=== PATIENT | female | born 1950 | race Caucasian/White ===

== ENCOUNTER 2016-08-25 10:11 | Outpatient (CLI) | payer MEDICAID | END 2016-08-25 10:12 | disposition home or self-care (01) | DX: Z12.31 Encounter for screening mammogram for malignant neoplasm of breast (principal) ==

== ENCOUNTER 2016-10-08 07:57 | Outpatient (CLI) | payer MEDICAID ==
--- NOTE | 2016-10-08 11:46 | MRI Report ---
MRI BRAIN WITHOUT CONTRAST INDICATION: 66-year-old female with atypical headache. Please assess. TECHNIQUE: 1. T1 sagittal and fat-saturated T2 coronal. 2. Axial T1, FLAIR, T2, T2 * and DWI. COMPARISON: Head CT 01/15/2013. FINDINGS: Ventricular size is normal. Noted are cavum septum pellucidum et vergae, normal anatomical variants. An old lacunar infarction is identified in the right caudate nucleus. In addition, old lacunar-type i nfarctions are seen in the ferguson radiata bilaterally. There is a mild to moderate amount of white ma tter disease in the supratentorial brain, manifested as focal and confluent T2 hyperdensities that ar e scattered throughout the periventricular, deep and subcortical white matter bilaterally. A frontopa rietal distribution predominates. Signal intensity of cortex and white matter is otherwise unremarkab le. Flow voids are demonstrated in the main intracranial arteries. A roughly 3 x 2 mm focus of B1000 hyperintensity is identified in deep white matter left parietal lob e (see image 136 of series 505). There is corresponding ADC map hypointensity, suggesting that this r elates to recent (i.e. one week old or less) infarction. There is a second, similar-sized focus B1000 hyperintensity in cortex of left parietal lobe, more posteriorly and slightly more craniad (see imag e 144 of series 505). It is difficult to confirm definite ADC map hypointensity associated with this second lesion suggesting that it may relate to older, more subacute infarction. No other focal abnorm ality is demonstrated on diffusion-weighted imaging. A small focus of magnetic susceptibility artifac t is identified in the subcortical white matter of right temporal lobe (see image 12 of series 601). In addition, a few small rounded foci of magnetic susceptibility artifact are identified in the upper frontal lobes bilaterally (see images 17 through 20 of series 801). A few are demonstrated, laterall y in anterior right temporal lobe. There appears to be a tiny focus of magnetic susceptibility artifa ct in upper left thalamus. These foci of magnetic susceptibility artifact likely represent hemosideri n from previous microhemorrhages. No other potential acute or chronic hemorrhage is identified on the T2* GRE sequence. No abnormal extra-axial fluid collection. No mass effect or midline shift. There is bilateral exophthalmos of uncertain etiology. No evidence of intraorbital mass lesion. There is minor mucosal thickening and a few ethmoid air cells. The paranasal sinuses are otherwise cl ear. No significant mastoid or middle ear effusion is demonstrated. IMPRESSION: 1. Age appropriate senescent change. 2. Old lacunar infarctions in the right caudate nucleus and bilateral ferguson radiata. 3. A mild to moderate amount of white matter disease is identified in the supratentorial brain, likel y representing chronic microangiopathy. 4. Tiny focus of diffusion restriction in deep white matter left parietal lobe, is consistent with re cent (7 days old or less) infarction. This could represent a small vessel-type infarction. However, a lso demonstrated is a small focus of B1000 hyperintensity in cortex of left parietal lobe that certai nly could relate to embolic-type infarction. This is in the left MCA territory. It probably relates t o older, more subacute infarction. 5. Several small, rounded foci of magnetic susceptibility artifact are identified in the supratentori al brain, likely representing hemosiderin from previous microhemorrhages. In a patient of this age, m ain differential diagnostic considerations for microhemorrhages are prior trauma, chronic hypertensio n and amyloid angiopathy. Amyloid angiopathy is more common in older individuals. 6. No other significant intracranial findings on this unenhanced brain MRI. In particular, no eviden ce of acute hemorrhage, space-occupying mass lesion or other potential cause for headaches. Referring Provider Line: [phone] SITE ID: [id number]
== END 2016-10-08 07:58 | disposition home or self-care (01) ==
LOC: DI 07:57
PROVIDERS: ATTEND Nurse Practitioner Family
DX: R90.82 White matter disease, unspecified (principal); Z86.73 Personal history of transient ischemic attack (TIA), and cerebral infarction without residual deficits
CPT/HCPCS: 70551

== ENCOUNTER 2016-11-04 14:20 | Outpatient (CLI) | payer MEDICAID ==
--- NOTE | 2016-11-05 07:52 | Ultrasound Report ---
CAROTID DUPLEX: 11/04/2016 CLINICAL INDICATION: Lacunar infarction. TECHNIQUE: Real-time sonographic vascular imaging was performed by the burr bench hand through the carotid arteries utilizing both color-flow and Doppler spectral analysis. Multiple inbound call center representative static images were saved for review. Vessel PSV cm/sec 2D Plaque Estimate % ICA/CCA PSV EDV cm/sec % Stenosis RCCA Prox 61 -- RCCA Dist 54 14 RECA 69 -- RT BULB 55 -- 1.02 18 ILDA Prox 52 -- 0.96 16 ILDA Mid 64 -- 1.19 17 ILDA Dist 76 -- 1.41 21 RVA 56 RVA flow direction: Antegrade. Vessel PSV cm/sec 2D Plaque Estimate % ICA/CCA PSV EDV cm/sec % Stenosis LCCA Prox 61 -- LCCA Dist 56 18 LECA 57 -- LFT BULB 66 -- 1.18 20 LICA Prox 48 -- 0.86 18 LICA Mid 98 -- 1.75 36 LICA Dist 69 -- 1.23 25 LVA 47 LVA flow direction: Antegrade. Velocity criteria are extrapolated from diameter data as defined by the Society of Radiologists in Ultrasound Consensus Conference Radiology 2003; 229; 340-346. Degree of Stenosis % ICA PSV cm/sec Plaque Estimate % ICA/CCA RSV Ratio ICA EDV cm/sec Normal < 125 None < 2.0 < 40 <50 < 125 < 50 < 2.0 < 40 50-69 125 - 130 >/= 50 2.0 - 4.0 40 - 100 >/= 70 but less than near occlusion > 230 >/= 50 > 4.0 > 100 Near occlusion High, low, or undetectable Visible lumen Variable Variable Total occlusion Undetectable No detectable lumen Not applicable Not applicable FINDINGS: RIGHT: There is mild plaquing in the right carotid bifurcation, without evidence of a focal hemodynamically significant carotid stenosis. LEFT: There is mild plaquing in the left carotid bifurcation, without evidence of a focal hemodynamically significant carotid stenosis. The vertebral arteries demonstrate antegrade flow bilaterally. IMPRESSION: MILD PLAQUING BILATERALLY, WITHOUT EVIDENCE OF A FOCAL HEMODYNAMICALLY SIGNIFICANT CAROTID STENOSIS. MTDD
== END 2016-11-04 14:21 | disposition home or self-care (01) ==
LOC: DI 14:20
PROVIDERS: ATTEND Family Medicine
DX: I63.50 Cerebral infarction due to unspecified occlusion or stenosis of unspecified cerebral artery (principal)
CPT/HCPCS: 93880

== ENCOUNTER → 2017-04-08 | Outpatient (CLI) | payer SELFPAY ==
[2017-04-08 18:41] LABS: CALCIUM 9.5 mg/dL (8.5-10.3); POTASSIUM 4.4 mmol/L (3.5-5.0)
== END ==
LOC: LAB.F 08:00
PROVIDERS: ATTEND Family Medicine
DX: I10 Essential (primary) hypertension (principal)
CPT/HCPCS: 36415; 80048

== ENCOUNTER 2018-03-19 14:43 | Emergency (ER) | payer MEDICARE ==
[2018-03-19 14:59] VITALS: BP 169/82
--- NOTE | 2018-03-19 16:22 | ED Physician Documentation ---
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: section, Tubal ligation, Hysterectomy - Present Medications Home Medications: Ambulatory Orders Medication Instructions Recorded Confirmed Albuterol [Proventil Hfa] 1 puffs INH Q4-6H 01/15/13 05/17/14 Atenolol 50 mg PO 01/15/13 05/17/14 Albuterol Sulfate 2.5 mg IH Q4HR PRN #25 unit 05/17/14 Albuterol [Ventolin Hfa] 2 puffs INH Q4H PRN #1 inhaler 05/17/14 Ciprofloxacin HCl/Dexameth 4 drops OT BID 7 Days #1 bottle 03/19/18 [Ciprodex Otic Suspension] - Allergies Allergies/Adverse Reactions: Allergies Allergy/AdvReac Type Severity Reaction Status Date / Time erythromycin base Allergy Severe Respiratory Verified 01/15/13 15:44 [Erythromycin Base] Penicillins Allergy Hives Verified 01/15/13 15:44 Tetracyclines Allergy Rash Verified 03/19/18 14:50 - Social History Does the pt smoke?: Yes Smoking Status: Current every day smoker Does the pt drink ETOH?: No Does the pt have substance abuse?: No - Immunizations Immunizations are current?: Yes - POLST Patient has POLST: No PD ED PE NORMAL - Vitals Vital signs reviewed: Yes - HEENT HEENT: Other (R ear mild canal TTP TM benign, L with erythematous scaling to outer ear, canal swollen red with bright green purulent dc and unable to see TM, mastoids s redness or swelling) - Cardiac Cardiac: RRR - Respiratory Respiratory: No respiratory distress, Clear bilaterally Results - Vitals Vitals: Vital Signs - 24 hr 03/19/18 14:45 Temperature 36 C L Heart Rate 69 Respiratory 18 Rate Blood Pressure 169/82 H O2 Saturation 98 Oxygen O2 Source Room air PD MEDICAL DECISION MAKING - ED course ED course: non diabetic no mastoiditis will tx with ciprodex ENT referal already in Departure - Departure Disposition: 01 Home, Self Care Clinical Impression: Otitis externa Qualifiers: Otitis externa type: unspecified type Chronicity: acute Laterality: left Qualified Code(s): H60.502 - Unspecified acute noninfective otitis externa, left ear Condition: Good Instructions: ED Otitis Externa Prescriptions: Ciprofloxacin HCl/Dexameth [Ciprodex Otic Suspension] 4 drops OT BID 7 Days #1 bottle
== END 2018-03-19 16:30 | disposition home or self-care (01) ==
LOC: ED 14:43
DX: H60.502 Unspecified acute noninfective otitis externa, left ear (principal); I10 Essential (primary) hypertension; J45.909 Unspecified asthma, uncomplicated; F17.200 Nicotine dependence, unspecified, uncomplicated; Z79.51 Long term (current) use of inhaled steroids
CPT/HCPCS: 87070; 87181; 87205; 99282; 99283

== ENCOUNTER 2018-03-31 14:49 | Emergency (ER) | payer MEDICARE ==
[2018-03-31 15:04] VITALS: BP 171/84
--- NOTE | 2018-03-31 16:17 | ED Physician Documentation ---
PD HPI HEENT - Stated complaint Stated Complaint: LT EAR PX - Chief complaint Chief Complaint: Heent - History obtained from History obtained from: Patient - History of Present Illness Location: Left ear Recently seen: Emergency Dept (2 weeks ago.) - Additional information Additional information: The patient is a 68-year-old female who complains of left earache. She was seen here 2 weeks ago with markedly swollen left ear canal and drainage, and was treated with Ciprodex for otitis externa. She reports that the swelling and redness has completely resolved, but she is concerned that there may still be some fluid drainage, and the Ciprodex medication was completed yesterday. She has an appointment scheduled with an ENT specialist in [place] 2 weeks from now. She is concerned about the possibility of her ear getting as bad as it was 2 weeks ago prior to treatment. Review of Systems Constitutional: denies: Fever Eyes: denies: Irritation Ears: reports: Ear pain (left ear) Nose: denies: Congestion Throat: denies: Sore throat Respiratory: reports: Cough (Chronic smoker's cough.). 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, Hysterectomy - Present Medications Home Medications: Ambulatory Orders Medication Instructions Recorded Confirmed Albuterol [Proventil Hfa] 1 puffs INH Q4-6H 01/15/13 05/17/14 Atenolol 50 mg PO 01/15/13 05/17/14 Albuterol Sulfate 2.5 mg IH Q4HR PRN #25 unit 05/17/14 Albuterol [Ventolin Hfa] 2 puffs INH Q4H PRN #1 inhaler 05/17/14 Metoprolol Tartrate 03/31/18 - Allergies Allergies/Adverse Reactions: Allergies Allergy/AdvReac Type Severity Reaction Status Date / Time erythromycin base Allergy Severe Respiratory Verified 03/31/18 15:04 [Erythromycin Base] Penicillins Allergy Hives Verified 03/31/18 15:04 Tetracyclines Allergy Rash Verified 03/31/18 15:04 - Social History Does the pt smoke?: Yes Smoking Status: Current every day smoker Does the pt drink ETOH?: No Does the pt have substance abuse?: No - Immunizations Immunizations are current?: Yes - POLST Patient has POLST: No PD ED PE NORMAL - Vitals Vital signs reviewed: Yes (initially hypertensive.) - General General: Alert and oriented X 3, Well developed/nourished, Other (Facial stigmata of chronic alcoholism.) - HEENT HEENT: Atraumatic, EOMI, Ears normal, Pharynx benign, Other (Examination of her ears reveals no evidence of otitis externa or otitis media currently.) - Neck Neck: Supple, no meningeal sign, No adenopathy - Cardiac Cardiac: RRR - Respiratory Respiratory: Clear bilaterally - Derm Derm: No rash - Neuro Neuro: Alert and oriented X 3, Normal speech Results - Vitals Vitals: Oxygen O2 Source Room air PD MEDICAL DECISION MAKING - ED course Complexity details: reviewed old records, considered differential, d/w patient ED course: A medical screening exam was performed on this patient who was concerned about the possibility of recurrent left otitis externa. Her examination does not reveal recurrent infection. I discussed with her lack of physical evidence of infection, provided reassurance, encouraged her to arrange follow-up with primary care, and discussed potentially worrisome signs or symptoms that should prompt reevaluation in the emergency department.. Departure - Departure Disposition: 01 Home, Self Care Clinical Impression: Encounter for medical screening examination, History of acute otitis externa Condition: Stable Instructions: ED Otitis Externa Comments: Your ear infection appears to have almost completely resolved at this time. I do not believe you need to be on more antibiotics currently. You should keep the appointment you have scheduled with the ENT specialist. Return to the emergency department if you develop increasing pain or swelling, or otherwise worsening symptoms. Discharge Date/Time: 03/31/18 16:32
== END 2018-03-31 16:32 | disposition home or self-care (01) ==
LOC: ED 14:49
DX: Z13.5 Encounter for screening for eye and ear disorders (principal); Z86.69 Personal history of other diseases of the nervous system and sense organs; I10 Essential (primary) hypertension; F17.200 Nicotine dependence, unspecified, uncomplicated
CPT/HCPCS: 99282

== ENCOUNTER 2018-06-27 12:18 | Outpatient (CLI) | payer MEDICARE ==
--- NOTE | 2018-06-27 15:48 | XRAY Report ---
Reason: EXTREME PAIN + ULCERATION 2ND DIGIT L FOOT Procedure Date: 06/27/2018 Accession Number: [id number] / [id number] Procedure: XR - Foot 2 View LT CPT Code: FULL RESULT: EXAM: LEFT FOOT RADIOGRAPHY EXAM DATE: 06/27/2018 12:35 PM. CLINICAL HISTORY: Extreme pain and ulceration second digit left foot. COMPARISON: Left toes radiography 07/24/2015. TECHNIQUE: 3 views. FINDINGS: Bones: There is a lytic area within the head of the second metatarsal with well-circumscribed sclerotic border, up to 0.9 cm, as well as a second adjacent region, 3 mm, with similar appearance. Both were seen in 2016. No other destructive changes are identified. No fractures or bone lesions. Joints: Normal. No subluxations. Soft Tissues: No soft tissue gas is detected. No soft tissue swelling. IMPRESSION: No new destructive changes. No fracture or dislocation. RADIA
== END 2018-06-27 12:19 | disposition home or self-care (01) ==
LOC: DI 12:18
PROVIDERS: ATTEND Podiatrist
DX: M79.672 Pain in left foot (principal)

== ENCOUNTER 2018-10-28 21:56 | Emergency (ER) | payer MEDICARE, MEDICAID ==
[2018-10-28] MEDS ORDERED: TETANUS/DIPHTHERIA/PERTUSSIS 0.5 ML SYRINGE IM ONE (22:11)
[2018-10-28] MEDS ORDERED: BUFFERED LIDOCAINE 10 ML SYRINGE SUBQ STA (22:11)
--- NOTE | 2018-10-28 22:13 | ED Physician Documentation ---
PD HPI UPPER EXT INJURY - Stated complaint Stated Complaint: ARM LAC/FALL - Chief complaint Chief Complaint: Laceration - History obtained from History obtained from: Patient - History of Present Illness Location: Right (68-year-old woman with unknown tetanus status slipped and fell and sustained a skin tear on the back of the left forearm at home just prior to arrival. 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: section, Tubal ligation, Hysterectomy - Present Medications Home Medications: Ambulatory Orders Medication Instructions Recorded Confirmed Albuterol [Proventil Hfa] 1 puffs INH Q4-6H 01/15/13 05/17/14 Atenolol 50 mg PO 01/15/13 05/17/14 Albuterol [Ventolin Hfa] 2 puffs INH Q4H PRN #1 inhaler 05/17/14 Metoprolol Tartrate 100 mg PO DAILY 03/31/18 - Allergies Allergies/Adverse Reactions: Allergies Allergy/AdvReac Type Severity Reaction Status Date / Time erythromycin base Allergy Severe Respiratory Verified 10/28/18 22:06 [Erythromycin Base] Penicillins Allergy Hives Verified 10/28/18 22:06 Tetracyclines Allergy Rash Verified 10/28/18 22:06 - Social History Does the pt smoke?: Yes Smoking Status: Current every day smoker Does the pt drink ETOH?: No Does the pt have substance abuse?: No - Immunizations Immunizations are current?: Yes - POLST Patient has POLST: No PD ED PE NORMAL - Vitals Vital signs reviewed: Yes - General General: Alert and oriented X 3, No acute distress - HEENT HEENT: PERRL, EOMI - Neck Neck: Supple, no meningeal sign, No bony TTP - Extremities Extremities: Other (She has a 2 cm but fairly deep skin tear mid left forearm posteriorly with intact range of motion in flexion and extension at the wrist and all the digits and normal neurovascular function in the hand.) - Neuro Neuro: Alert and oriented X 3, Normal speech Results - Vitals Vitals: Vital Signs - 24 hr 10/28/18 22:00 Temperature 36.1 C L Heart Rate 61 Respiratory 18 Rate Blood Pressure 150/90 H O2 Saturation 96 Oxygen O2 Source Room air Procedures - Laceration (location) L arm Length in cm: 3 Wound type: Linear, Superficial, Into subcut fat Neurovascular status: Sensory intact, Motor intact, Vascular intact Anesthesia: Lidocaine 1%, With bicarb Wound Preparation: Irrigated copiously NS Skin layer closure: Nylon, Size #-0 - enter number (4-0), Sutures - enter # (3 horizontal mattress) Other: Tetanus booster given Complexity: Simple Departure - Departure Disposition: 01 Home, Self Care Clinical Impression: Laceration Condition: Good Record reviewed to determine appropriate education?: Yes Health Concerns: forearm laceration Plan of Treatment: Suturing, tetanus updated Care Goals: wound healing Assessment: as above Instructions: ED Laceration All Comments: Come back for any signs of infection which would include: Redness, swelling, drainage, increased pain, or fevers. You can wash it soap and water. Keep it covered and moist with bacitracin ointment which is available over the counter; avoid neosporin. Follow-up with your physician in about 14 days for suture removal. Note that these are horizontal mattress sutures, not simple interrupted sutures and should be taken out by a professional. Your blood pressure was elevated today on check into the emergency department. This does not mean that you have hypertension, it is a common phenomenon to come to the emergency department and have elevated blood pressure. I recommend that you see your primary care physician within the week to have it rechecked when you are feeling better.
[2018-10-28 22:41] VITALS: BP 172/82
== END 2018-10-28 22:47 | disposition home or self-care (01) ==
LOC: ED 21:56
DX: S51.812A Laceration without foreign body of left forearm, initial encounter (principal); W01.0XXA Fall on same level from slipping, tripping and stumbling without subsequent striking against object, initial encounter; Y93.89 Activity, other specified; Y92.009 Unspecified place in unspecified non-institutional (private) residence as the place of occurrence of the external cause; Z23 Encounter for immunization; I10 Essential (primary) hypertension; F17.200 Nicotine dependence, unspecified, uncomplicated
CPT/HCPCS: 12002; 90471; 99282; 99283

== ENCOUNTER 2018-11-19 10:28 | Outpatient (CLI) | payer MEDICARE, MEDICAID ==
--- NOTE | 2018-11-20 10:26 | Ultrasound Report ---
Reason: FLANK PAIN,LEFT Procedure Date: 11/19/2018 Accession Number: [id number] / [id number] Procedure: US - Abdomen Complete CPT Code: FULL RESULT: EXAM: ABDOMEN ULTRASOUND EXAM DATE: 11/19/2018 12:03 PM. CLINICAL HISTORY: Flank pain, left. COMPARISON: None. TECHNIQUE: Real-time scanning was performed with static images obtained. FINDINGS: Liver: Diffuse increased echogenicity and mild diffuse coarsening is compatible with fatty infiltration. No mass demonstrated. Findings consistent with a benign 2.4 x 1.0 x 2.5 cm peripheral right lobe cyst. Normal liver size, 14 cm. Main portal vein flow: Hepatopetal. Gallbladder: Single mobile 1.4 cm stone demonstrated. No gallbladder wall thickening, gallbladder dilatation, adjacent fluid or sonographic James sign. Biliary System: Common bile duct measures 8 mm. Mild, bile duct dilatation. No intrahepatic ductal dilatation demonstrated. Pancreas: Visualized portion is unremarkable. Kidneys: Right: 9.2 cm longitudinally. Mildly prominent renal pelvis without caliectasis likely represents normal prominent extrarenal pelvis. 1.5 x 1.5 x 1.3 cm lobulated cystic focus is demonstrated. Based on the images provided, this is considered to be indeterminant. Some mild wall irregularity or septal thickening cannot definitely be excluded. No definite masses or stones. Left: 11.4 cm longitudinally. Mildly prominent renal pelvis without caliectasis likely represents normal prominent extrarenal pelvis. 1.4 x 2.1 x 1.3 cm cyst appears mildly irregular but is probably benign. However, portions of the wall are not optimally visualized/characterized on the images provided. No definite masses or stones. Spleen: 10 cm. Normal in size and echotexture. Aorta and Inferior Vena Cava: Unremarkable. Other: Bladder appears grossly unremarkable with a prevoid volume of 231 cc and postvoid volume of 23 cc. Bilateral ureteral jets are visualized. The technologist incidentally noted a mobile soft tissue mass at the "right costal arch, focal fat collection." It has not been measured by the technologist. Based on the limited images provided, it does appear isoechoic to subcutaneous fat and presumably represents an incidental lipoma but clinical correlation is recommended and need for further evaluation should be based on the clinical setting. IMPRESSION: 1. Pattern consistent with diffuse fatty infiltration of the liver. 2. Cholelithiasis without ultrasound evidence of acute cholecystitis. 3. Mild dilatation of the common bile duct, 8 mm. 4. 1.5 cm right and 2.1 cm left cystic lesions are likely benign but definitive criteria are not confirmed on the images provided. Further evaluation by dedicated renal CT imaging with and without contrast could be considered. 5. Benign hepatic cyst. 6. Probable incidental chest/abdominal wall lipoma, as above. RADIA
== END 2018-11-19 10:29 | disposition home or self-care (01) ==
LOC: DI 10:28
PROVIDERS: ATTEND Registered Nurse
DX: R10.9 Unspecified abdominal pain (principal); K76.0 Fatty (change of) liver, not elsewhere classified; K80.20 Calculus of gallbladder without cholecystitis without obstruction; K76.89 Other specified diseases of liver; Q61.02 Congenital multiple renal cysts
CPT/HCPCS: 76700

== ENCOUNTER 2019-01-03 09:45 | Outpatient (CLI) | payer MEDICARE, MEDICAID ==
[2019-01-03 10:02] LABS: EOSINOPHILS # (AUTO) 0.2 10^3/uL (0.0-0.7); EOSINOPHILS % (AUTO) 6.2 %; HGB - HEMOGLOBIN 13.6 g/dL (12.0-16.0); LYMPHOCYTES # (AUTO) 0.8 10^3/uL (1.5-3.5); LYMPHOCYTES % (AUTO) 21.2 %; MEAN CORPUSCULAR HEMOGLOBIN 33.7 pg (27.0-31.0); MEAN CORPUSCULAR VOLUME 96.5 fL (81.0-99.0); MEAN PLATELET VOLUME 9.4 fL (7.9-10.8); MONOCYTES # (AUTO) 0.4 10^3/uL (0.0-1.0); MONOCYTES % (AUTO) 11.4 %; NEUTROPHILS # (AUTO) 2.3 10^3/uL (1.5-6.6); NEUTROPHILS % (AUTO) 59.9 %; PLT - PLATELET COUNT 188 10^3/uL (130-450); RED BLOOD COUNT 4.03 10^6/uL (4.20-5.40); RED CELL DISTRIBUTION WIDTH 12.4 % (12.0-15.0); WHITE BLOOD COUNT 3.9 x10^3/uL (4.8-10.8)
[2019-01-03 10:26] LABS: HB2 TOTAL 13.5 g/dL; HEMOGLOBIN A1C 0.45 g/dL; HEMOGLOBIN A1C % 5.2 % (4.6-6.2)
[2019-01-03 10:28] LABS: ALBUMIN 4.1 g/dL (3.2-5.5); ALBUMIN/GLOBULIN RATIO 1.1 (1.0-2.2); ALKALINE PHOSPHATASE 51 IU/L (42-121); ALT ALANINE AMINOTRANSFERASE 18 IU/L (10-60); AST ASPARTATE AMINOTRANSFERASE 27 IU/L (10-42); BILIRUBIN,TOTAL 1.2 mg/dL (0.2-1.0); BUN - BLOOD UREA NITROGEN 20 mg/dL (6-20); CALCIUM 9.9 mg/dL (8.5-10.3); CARBON DIOXIDE - CO2 31 mmol/L (21-32); CHLORIDE 94 mmol/L (101-111); CHOL/HDL RATIO 2.4 (<4.4); CHOLESTEROL 214 mg/dL; CREATININE 0.9 mg/dL (0.4-1.0); GFR - MDRD 63 (>89); GLUCOSE 90 mg/dL (70-100); HDL CHOLESTEROL 88 mg/dL; LDL CHOLESTEROL,CALCULATED 117 mg/dL; LDL/HDL RATIO 1.3 (<4.4); SODIUM 133 mmol/L (135-145); TOTAL PROTEIN 7.8 g/dL (6.7-8.2); VLDL CHOLESTEROL 9 mg/dL
== END 2019-01-03 09:46 | disposition home or self-care (01) ==
LOC: LAB 09:45
PROVIDERS: ATTEND Registered Nurse
DX: I10 Essential (primary) hypertension (principal); Z72.0 Tobacco use; Z78.0 Asymptomatic menopausal state; E66.9 Obesity, unspecified
CPT/HCPCS: 36415; 80053; 80061; 83036; 83721; 84443; 85025

== ENCOUNTER 2019-01-05 11:14 | Outpatient (CLI) | payer MEDICARE, MEDICAID ==
[2019-01-05] MEDS ORDERED: IOVERSOL 320 100 ML VIAL IVP ONE (11:29)
--- NOTE | 2019-01-09 12:34 | CT Report ---
Reason: LT FLANK PAIN, RENAL PROTOCOL Procedure Date: 01/05/2019 Accession Number: [id number] / [id number] Procedure: CT - ABDOMEN W/WO CPT Code: FULL RESULT: EXAM: CT ABDOMEN WITHOUT AND WITH CONTRAST EXAM DATE: 01/05/2019 11:54 AM. HISTORY: LT FLANK PAIN, RENAL PROTOCOL. COMPARISON: None. TECHNIQUE: Routine helical CT imaging was performed through the abdomen before and after administration of IV contrast: 90 cc Optiray 320. Enteric contrast: No. Reconstruction: Coronal and sagittal. In accordance with CT protocol optimization, one or more of the following dose reduction techniques were utilized for this exam: automated exposure control, adjustment of mA and/or KV based on patient size, or use of iterative reconstructive technique. FINDINGS: Lung Bases: Unremarkable. Liver: 1.5 cm subcapsular segment 8 hypoattenuating study on the nephrographic phase (10/21) is not definitively seen on the noncontrast or corticomedullary phases, and is indeterminate. No other focal liver lesions are seen. Hepatic and portal veins appear patent. Gallbladder/Bile Ducts: Unremarkable. Spleen: Normal. Small accessory splenule seen adjacent to the spleen. Pancreas: Normal. No masses or ductal obstruction. Adrenal Glands: Normal. Kidneys: No renal calculi are seen. No hydronephrosis bilaterally. The visualized upper ureters appear unremarkable bilaterally. No renal masses are evident. Partial right lower nephrectomy is seen with mild right lower renal scarring and adjacent surgical clips. No evidence for new nodularity at the resection site to suspect recurrence. Peritoneal Cavity/Bowel: Unremarkable stomach. Normal caliber bowel loops without obstruction. No enlarged intraperitoneal or retroperitoneal lymph nodes are seen. No intra-abdominal fluid collections or masses evident. Vasculature: Atherosclerotic calcifications. No aneurysms. Bones: Osteopenia. Degenerative changes throughout the visualized spine. Other: None. IMPRESSION: 1. No renal calculi nor hydronephrosis bilaterally. No perinephric fat stranding. No findings to explain flank pain. 2. Unremarkable appearance of partial nephrectomy at the right lower pole with adjacent surgical clips, without evidence for local recurrence. 3. No new renal masses seen bilaterally. 4. Hypoattenuating subcapsular hepatic segment 8 lesion seen on the nephrographic phase is indeterminate. Liver MRI should be considered for further evaluation. RADIA
== END 2019-01-05 11:15 | disposition home or self-care (01) ==
LOC: DI 11:14
PROVIDERS: ATTEND Registered Nurse
DX: K76.9 Liver disease, unspecified (principal); R10.9 Unspecified abdominal pain; Z90.5 Acquired absence of kidney
CPT/HCPCS: 74170; Q9967

== ENCOUNTER 2019-01-30 09:34 | Outpatient (CLI) | payer MEDICARE, MEDICAID ==
[2019-01-30] MEDS ORDERED: GADOBUTROL 10 MMOL/10 ML VIAL ONE (10:21)
[2019-01-30] MEDS ORDERED: GADOBUTROL 10 MMOL/10 ML VIAL IVP ONE (11:26)
--- NOTE | 2019-01-30 14:37 | MRI Report ---
Reason: FLANK PAIN LEFT Procedure Date: 01/30/2019 Accession Number: [id number] / [id number] Procedure: MRI - Abdomen W/WO CPT Code: FULL RESULT: EXAM: MR ABDOMEN WITH AND WITHOUT CONTRAST (MR LIVER) EXAM DATE: 01/30/2019 11:15 AM. CLINICAL HISTORY: History of flank pain with CT study demonstrating segment 8 hepatic lesion. COMPARISON: ABDOMEN W/WO 01/05/2019 11:45 AM. TECHNIQUE: Multiplanar breath-hold T1, T2, and DWI sequences obtained through the abdomen on an MR scanner. Images obtained before and after administration of 7 mL Gadavist intravenous contrast. Multiphase postcontrast images obtained of the liver and abdomen. FINDINGS: Lung Bases: Unremarkable. Liver: The previously identified hypoenhancing solid segment 4A/segment 8 lesion along the anterior liver measures 1.5 x 1.4 cm and is T2 hyperintense, questionably contains microscopic fat on chemical phase shift imaging and demonstrates hypoenhancement compared to background parenchyma in all phases. Unfortunately, precontrast T1 sequences are motion degraded to the point where absence or presence of definitive enhancement are difficult to establish, based on previous CT the lesion is solid, and hypoenhancing compared to background liver. Gallbladder: The gallbladder is partially distended and appears normal with no wall thickening or stone. Bile ducts: No intrahepatic or extrahepatic duct dilatation Pancreas: The pancreas appears normal with no mass or ductal dilatation. Spleen: The spleen appears normal. Kidneys: The kidneys appear normal with no mass or hydronephrosis. Adrenals: The adrenals appear normal. Bowel: The visualized segments of the small bowel and colon appear normal with no inflammation or obstruction. Retroperitoneum: The retroperitoneal structures appear normal with no mass or lymphadenopathy. Other: None IMPRESSION: Indeterminate 1.5 cm dome of the liver lesion near segment 4/segment 8. The differential diagnosis includes metastatic disease which should be ruled out, biopsy could be considered. Unfortunately, T1 precontrast images are degraded to the point where the exclusion of focal fatty infiltration by virtue of T1 signal intensity is not confirmed, but this is felt to be less likely given appearance, dual echo signal and T2 hyperintense signal. RADIA
== END 2019-01-30 09:35 | disposition home or self-care (01) ==
LOC: DI 09:34
PROVIDERS: ATTEND Registered Nurse
DX: K76.9 Liver disease, unspecified (principal)
CPT/HCPCS: 74183; A9585

== ENCOUNTER 2019-02-22 14:28 | Outpatient (CLI) | payer MEDICARE, MEDICAID ==
[2019-02-22 14:57] LABS: BASOPHILS % (AUTO) 0.4 %; EOSINOPHILS # (AUTO) 0.2 10^3/uL (0.0-0.7); EOSINOPHILS % (AUTO) 3.8 %; HGB - HEMOGLOBIN 12.8 g/dL (12.0-16.0); LYMPHOCYTES # (AUTO) 1.2 10^3/uL (1.5-3.5); LYMPHOCYTES % (AUTO) 25.2 %; MEAN CORPUSCULAR HEMOGLOBIN 33.4 pg (27.0-31.0); MEAN CORPUSCULAR HGB CONC 35.1 g/dL (32.0-36.0); MEAN CORPUSCULAR VOLUME 95.3 fL (81.0-99.0); MONOCYTES # (AUTO) 0.4 10^3/uL (0.0-1.0); MONOCYTES % (AUTO) 9.2 %; NEUTROPHILS # (AUTO) 2.9 10^3/uL (1.5-6.6); NEUTROPHILS % (AUTO) 61.2 %; PLT - PLATELET COUNT 183 10^3/uL (130-450); RED BLOOD COUNT 3.83 10^6/uL (4.20-5.40); RED CELL DISTRIBUTION WIDTH 11.9 % (12.0-15.0); WHITE BLOOD COUNT 4.7 x10^3/uL (4.8-10.8)
[2019-02-22 15:04] LABS: PT - PROTHROMBIN TIME 11.3 secs (9.9-12.6)
[2019-02-22 15:06] LABS: ALBUMIN 4.2 g/dL (3.2-5.5); BILIRUBIN,DIRECT 0.1 mg/dL (0.1-0.5); BILIRUBIN,TOTAL 0.8 mg/dL (0.2-1.0); TOTAL PROTEIN 7.3 g/dL (6.7-8.2)
[2019-02-22 15:11] LABS: PARTIAL THROMBOPLASTIN TIME 26.6 secs (24.9-33.3)
[2019-02-23 11:11] LABS: HEPATITIS C ANTIBODY NON-REACTIVE (NON-REACTIVE)
== END 2019-02-22 14:29 | disposition home or self-care (01) ==
LOC: LAB 14:28
PROVIDERS: ATTEND Family Medicine
DX: K76.9 Liver disease, unspecified (principal); D64.9 Anemia, unspecified
CPT/HCPCS: 36415; 80076; 85025; 85610; 85730; 86803

== ENCOUNTER 2019-03-12 16:22 | Emergency (ER) | payer OTHER, MEDICARE, MEDICAID ==
--- NOTE | 2019-03-12 17:30 | XRAY Report ---
Reason: right pinky injury Procedure Date: 03/12/2019 Accession Number: [id number] / [id number] Procedure: XR - Hand 3 View RT CPT Code: Final Report FULL RESULT: EXAM: RIGHT HAND RADIOGRAPHY EXAM DATE: 03/12/2019 04:54 PM. CLINICAL HISTORY: Right 5th finger injury. COMPARISON: None. TECHNIQUE: 4 views. FINDINGS: Flexion positioning limits evaluation of the fingers on several views. Bones: No acute fracture. No suspicious osseous lesion. 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 No dislocation. Other: None. IMPRESSION: No acute osseous abnormality. RADIA
--- NOTE | 2019-03-12 17:54 | ED Physician Documentation ---
History of Present Illness - Stated complaint Stated Complaint: RT HAND INJURY - Chief complaint Chief Complaint: Ext Problem - Additonal information Additional information: This is a 68-year-old female who presents with right ring finger pain. Patient hyperextended the finger after tripping at work yesterday and she said it bent back past 90 degrees. She had a quite a bit of pain this morning, which is decreased somewhat throughout the day. She also hit the left side of her face, but has minimal to no pain and did not lose consciousness. No LOC. She is taking naproxen. She denies any weakness or numbness over the finger, she is able to flex and extend it. 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: section, Tubal ligation, Hysterectomy - Present Medications Home Medications: Ambulatory Orders Medication Instructions Recorded Confirmed Albuterol [Proventil Hfa] 1 puffs INH Q4-6H 01/15/13 05/17/14 Atenolol 50 mg PO 01/15/13 05/17/14 Albuterol [Ventolin Hfa] 2 puffs INH Q4H PRN #1 inhaler 05/17/14 Metoprolol Tartrate 100 mg PO DAILY 03/31/18 - Allergies Allergies/Adverse Reactions: Allergies Allergy/AdvReac Type Severity Reaction Status Date / Time erythromycin base Allergy Severe Respiratory Verified 10/28/18 22:06 [Erythromycin Base] Penicillins Allergy Hives Verified 10/28/18 22:06 Tetracyclines Allergy Rash Verified 03/12/19 16:35 - Social History Does the pt smoke?: Yes Smoking Status: Current every day smoker Does the pt drink ETOH?: No Does the pt have substance abuse?: No - Immunizations Immunizations are current?: Yes - POLST Patient has POLST: No PD ED PE NORMAL - General General: Alert and oriented X 3 - HEENT HEENT: Atraumatic, Other (Very mild superficial small abrasion to left face. No deformity.) - Neck Neck: Supple, no meningeal sign - Respiratory Respiratory: No respiratory distress - Extremities Extremities: Other (Mild edema over the fourth MCP joint, mild tenderness to palpation in this region. Patient has good flexion extension MCP, PIP and DIP in the fourth finger, no tenderness of the scaphoid or metacarpals. Sensation is intact light touch over the distal fingers, and capillary refill is brisk.) - Neuro Neuro: Alert and oriented X 3 Results - Vitals Vitals: Vital Signs - 24 hr 03/12/19 03/12/19 16:33 18:11 Temperature 37 C Heart Rate 67 63 Respiratory 20 16 Rate Blood Pressure 151/76 H 169/67 H O2 Saturation 97 95 Oxygen O2 Source Room air - Rads (name of study) XR R hand 3 view Radiology: Other (Polyarticular osteoarthritis without acute osseous abnormality or dislocation) PD MEDICAL DECISION MAKING - ED course ED course: Pt presents with pain after a hyperextension injury. XR is negative and finger is neurovascularly intact. I discussed supportive care for what appears to be a sprain, as well as PCP follow up. I also discussed follow up in 1 week with any worsening for repeat film. She does not have signs of any significant head injury and does not need CT head today. Return precautions discussed and patient was discharged home. Departure - Departure Disposition: 01 Home, Self Care Clinical Impression: Finger sprain Qualifiers: Encounter type: initial encounter Finger: ring finger Sprain of finger site: metacarpophalangeal joint Laterality: right Qualified Code(s): S63.654A - Sprain of metacarpophalangeal joint of right ring finger, initial encounter Condition: Good Instructions: ED Sprain Finger Follow-Up: Digna Oconnor MD [Primary Care Provider] - Within 1 week (For repeat exam and XR if pain is not improving) Comments: You were seen today for pain in your right ring finger after hyperextension injury. We do not see signs of a fracture today, please rest ice and elevate the area of pain, you may take naproxen and Tylenol for discomfort. If you are still having pain is not improved in 1 week, follow-up with your primary care provider to get a repeat x-ray and exam, as occasionally x-rays do not show small fractures in the first couple days. Forms: Activity restrictions Discharge Date/Time: 03/12/19 18:28
[2019-03-12 18:12] VITALS: BP 169/67
== END 2019-03-12 18:28 | disposition home or self-care (01) ==
LOC: ED 16:22
DX: S63.654A Sprain of metacarpophalangeal joint of right ring finger, initial encounter (principal); W01.0XXA Fall on same level from slipping, tripping and stumbling without subsequent striking against object, initial encounter; X50.1XXA Overexertion from prolonged static or awkward postures, initial encounter; Y99.0 Civilian activity done for income or pay; I10 Essential (primary) hypertension; I73.00 Raynaud's syndrome without gangrene; F17.200 Nicotine dependence, unspecified, uncomplicated
CPT/HCPCS: 99282; 99283

== ENCOUNTER 2019-05-15 11:57 | Outpatient (CLI) | payer MEDICARE, MEDICAID ==
[2019-05-15 12:57] LABS: ALBUMIN 3.8 g/dL (3.2-5.5); ALBUMIN/GLOBULIN RATIO 1.1 (1.0-2.2); ALKALINE PHOSPHATASE 50 IU/L (42-121); ALT ALANINE AMINOTRANSFERASE 15 IU/L (10-60); AST ASPARTATE AMINOTRANSFERASE 25 IU/L (10-42); BUN - BLOOD UREA NITROGEN 17 mg/dL (6-20); CALCIUM 9.4 mg/dL (8.5-10.3); CARBON DIOXIDE - CO2 31 mmol/L (21-32); CHLORIDE 96 mmol/L (101-111); CREATININE 0.9 mg/dL (0.4-1.0); GFR - MDRD 62 (>89); GLUCOSE 101 mg/dL (70-100); SODIUM 135 mmol/L (135-145); TOTAL PROTEIN 7.2 g/dL (6.7-8.2)
[2019-05-15 13:02] LABS: CRP - C-REACTIVE PROTEIN < 1.0 mg/dL (0-1.0)
[2019-05-15 13:22] LABS: RHEUMATOID FACTOR NEGATIVE (Negative)
[2019-05-17 12:15] LABS: ANA SCREEN NEGATIVE (NEGATIVE)
== END 2019-05-15 11:58 | disposition home or self-care (01) ==
LOC: LAB 11:57
PROVIDERS: ATTEND Family Medicine
DX: Z82.61 Family history of arthritis (principal); R51 Headache; M25.50 Pain in unspecified joint
CPT/HCPCS: 36415; 80053; 85651; 86038; 86140; 86200; 86430

== ENCOUNTER 2019-06-02 09:49 | Outpatient (CLI) | payer MEDICARE, MEDICAID ==
[2019-06-02] MEDS ORDERED: GADOBUTROL 7.5 MMOL/7.5 ML VIAL ONE (10:07)
[2019-06-02] MEDS ORDERED: GADOBUTROL 7.5 MMOL/7.5 ML VIAL IVP ONE (11:07)
--- NOTE | 2019-06-02 13:39 | MRI Report ---
Reason: HEADACHE ATYPICAL Procedure Date: 06/02/2019 Accession Number: [id number] / [id number] Procedure: MRI - Brain W/WO CPT Code: Final Report FULL RESULT: EXAM: MRI BRAIN WITHOUT AND WITH CONTRAST EXAM DATE: 06/02/2019 11:20 AM. CLINICAL HISTORY: 69-year-old female. HEADACHE ATYPICAL. COMPARISON: MR brain 10/08/2016 TECHNIQUE: Multiplanar, multisequence T1-weighted and fluid-sensitive MR sequences of the brain were performed before and after administration of intravenous contrast. Sequences optimized for routine evaluation. Other: None. IV Contrast: 6 ML Gadavist. FINDINGS: Brain Volume: Mild diffuse cerebral volume loss with ex vacuo dilatation of the ventricles and sulci, similar to prior study. Parenchyma: No acute hemorrhage, mass, or infarct. Extensive, semi-confluent T2/FLAIR hyperintense periventricular, deep, and subcortical white matter lesions within cerebral hemispheres bilaterally. No abnormal enhancement. Chronic lacunar infarcts right caudate nucleus and bilateral coronal radiata. Redemonstration scattered parenchymal foci of susceptibility artifact, likely representing chronic microhemorrhages. Ventricles/Cisterns: No hydrocephalus. No abnormal extra-axial fluid collection or hemorrhage. Orbits: Symmetric and unremarkable. Sella Turcica: The pituitary gland, cavernous sinuses, suprasellar cistern and optic chiasm are unremarkable. IAC: Symmetric and unremarkable. Vasculature: Normal signal flow void is seen in the major arterial structures at the skull base. The dural sinuses are patent and enhance normally. Sinuses: No acute sinus disease. Bones: No focal pathologic appearing marrow signal changes. Other: None. IMPRESSION: 1. No MRI evidence of acute intracranial abnormality. Specifically, no evidence of acute or subacute infarct, acute intracranial hemorrhage, mass, midline shift, or hydrocephalus. No abnormal intracranial enhancement. 2. Mild diffuse cerebral volume loss with ex vacuo dilatation of the ventricles and sulci, similar to prior study. 3. Extensive, semi-confluent T2/FLAIR hyperintense periventricular, deep, and subcortical white matter lesions within cerebral hemispheres bilaterally. 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 4. Chronic lacunar infarcts right caudate nucleus and bilateral coronal radiata. 5. Redemonstration scattered parenchymal foci of susceptibility artifact, likely representing chronic microhemorrhages. The primary differential considerations are hypertensive microbleeds, sequela of prior trauma, and amyloid angiopathy. RADIA
== END 2019-06-02 09:50 | disposition home or self-care (01) ==
LOC: DI 09:49
PROVIDERS: ATTEND Family Medicine
DX: R51 Headache (principal); I73.00 Raynaud's syndrome without gangrene; K76.9 Liver disease, unspecified
CPT/HCPCS: 70553; A9585

== ENCOUNTER 2019-08-19 14:23 | Emergency (ER) | payer MEDICARE, MEDICAID ==
--- NOTE | 2019-08-19 14:47 | ED Physician Documentation ---
History of Present Illness - Stated complaint Stated Complaint: LT LEG REDNESS,PX - Chief complaint Chief Complaint: Wound - History obtained from History obtained from: Patient - History of Present Illness Timing: How many days ago (2-3) Pain level max: 7 Pain level now: 5 Improved by: nothing Worsened by: nothing - Additonal information Additional information: LLE pain and swelling for a few days. worse today. Noted redness from the heel to medial aspect of the thigh. 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: section, Tubal ligation, Hysterectomy - Present Medications Home Medications: Ambulatory Orders Medication Instructions Recorded Confirmed Albuterol [Proventil Hfa] 1 puffs INH Q4-6H 01/15/13 05/17/14 Atenolol 50 mg PO 01/15/13 05/17/14 Albuterol [Ventolin Hfa] 2 puffs INH Q4H PRN #1 inhaler 05/17/14 Metoprolol Tartrate 100 mg PO DAILY 03/31/18 Cefdinir 300 mg PO BID #20 capsule 08/19/19 Oxycodone HCl 5 - 10 mg PO Q6H PRN #14 tablet 08/19/19 Rivaroxaban [Xarelto] 15 mg PO BID #42 tablet 08/19/19 - Allergies Allergies/Adverse Reactions: Allergies Allergy/AdvReac Type Severity Reaction Status Date / Time erythromycin base Allergy Severe Respiratory Verified 08/19/19 14:32 [Erythromycin Base] Penicillins Allergy Hives Verified 08/19/19 14:32 Tetracyclines Allergy Rash Verified 08/19/19 14:32 - Social History Does the pt smoke?: Yes Smoking Status: Current every day smoker Does the pt drink ETOH?: No Does the pt have substance abuse?: No - Immunizations Immunizations are current?: Yes - POLST Patient has POLST: No PD ED PE NORMAL - Vitals Vital signs reviewed: Yes - General General: Alert and oriented X 3, No acute distress - HEENT HEENT: Moist mucous membranes - Neck Neck: Supple, no meningeal sign - Cardiac Cardiac: RRR - Respiratory Respiratory: No respiratory distress, Clear bilaterally - Abdomen Abdomen: Soft, Non tender, Non distended - Derm Derm: Warm and dry - Extremities Extremities: Other (LLE swollen approx 2x the size of the RLE. Mild erythema. + calf tenderness. +medial thigh tenderness.) - Neuro Neuro: Alert and oriented X 3 - Psych Psych: Normal mood, Normal affect Results - Vitals Vitals: Vital Signs - 24 hr 08/19/19 08/19/19 14:27 16:30 Temperature 36.5 C Heart Rate 64 61 Respiratory 18 18 Rate Blood Pressure 196/92 H 173/76 H O2 Saturation 100 100 Oxygen O2 Source Room air - Labs Labs: Laboratory Tests 08/19/19 08/19/19 08/19/19 14:53 14:53 14:53 WBC 7.2 RBC 3.87 L Hgb 12.6 Hct 36.9 L MCV 95.3 MCH 32.6 H MCHC 34.1 RDW 12.2 Plt Count 151 MPV 10.2 Neut # (Auto) 5.4 Lymph # (Auto) 0.8 L [place] # (Auto) 0.8 Eos # (Auto) 0.1 Baso # (Auto) 0.0 Absolute Nucleated RBC 0.00 Nucleated RBC % 0.0 ESR 34 H Sodium 129 L Potassium 4.4 Chloride 92 L Carbon Dioxide 27 Anion Gap 10.0 BUN 18 Creatinine 1.1 H Estimated GFR (MDRD) 50 L Glucose 103 H Calcium 9.7 Total Bilirubin 1.0 AST 32 ALT 17 Alkaline Phosphatase 66 C-Reactive Protein 11.0 H Total Protein 7.9 Albumin 3.9 Globulin 4.0 Albumin/Globulin Ratio 1.0 Lipase 41 - Rads (name of study) Duplex ultrasound left lower extremity Radiology: Prelim report reviewed, EMP read contemporaneously, See rad report (1. Mid peroneal vein nonocclusive acute deep venous thrombosis versus chronic recanalized deep vein thrombus. Other deep veins are patent in the lower extremity. 2. Painful left groin lymph nodes. Probably reactive. ) PD MEDICAL DECISION MAKING - ED course Complexity details: reviewed results, re-evaluated patient, considered differential, d/w patient ED course: -year-old female presents to the emergency department, appears to have a mid peroneal vein nonocclusive DVT versus chronic recanalized DVT. Possible cellulitis as well. She has significantly swollen and her symptoms are consistent with an acute DVT. We will place her on antibiotics as well as Xarelto for home. Has not had any recent surgery. Discussed risks and benefits of anticoagulation. Does not have any bleeding disorders. No history of head injury or brain surgery. Patient will follow-up with her doctor for repeat ultrasound in a few weeks. Patient counseled regarding signs and symptoms for which I believe and urgent re-evaluation would be necessary. Patient with good understanding of and agreement to plan and is comfortable going home at this time This document was made in part using voice recognition software. While efforts are made to proofread this document, sound alike and grammatical errors may occur. Departure - Departure Disposition: Home, Self Care Clinical Impression: DVT (deep venous thrombosis) Qualifiers: DVT location: lower extremity Affected thrombotic vein of extremity: unspecified vein of extremity Chronicity: unspecified Laterality: left Qualified Code(s): I82.402 - Acute embolism and thrombosis of unspecified deep veins of left lower extremity Cellulitis Qualifiers: Site of cellulitis: extremity Site of cellulitis of extremity: lower extremity Laterality: left Qualified Code(s): L03.116 - Cellulitis of left lower limb Condition: Good Instructions: ED Infec Skin Cellulitis Follow-Up: MARCE ESPINO MD [Primary Care Provider] - Within 1 week Prescriptions: Cefdinir 300 mg PO BID #20 capsule Oxycodone HCl 5 - 10 mg PO Q6H PRN #14 tablet PRN Reason: pain Rivaroxaban [Xarelto] 15 mg PO BID #42 tablet Comments: Return if you worsen. Follow-up with your doctor for repeat evaluation in 3 to 4 days. Return for increasing pain, redness or swelling. Return especially for fevers. Return for any difficulty breathing. Follow-up with your doctor for further care. You will need a repeat ultrasound of your leg in approximately 3 to 4 weeks. After the initial prescription of Xarelto runs out in 21 days, you will need to be on Xarelto 20 mg daily as prescribed by your doctor. Do not drink alcohol or drive while on narcotic pain medicine. Note that many narcotic pain relievers also contain tylenol/acetaminophen. Please ensure that your total dose of acetaminophen from all sources does not exceed 3 grams (3000mg) per day. You may constipated on this medication, take a stool softener such as "Colace" twice a day while you are on it. Also recommend a [id number] laxative such as senna or MiraLAX any day that you do not have a bowel movement. If you received narcotic pain medication in the emergency department, do not drive or operate machinery for the next 24 hours. Discharge Date/Time: 08/19/19 17:30
[2019-08-19 15:00] LABS: BASOPHILS % (AUTO) 0.3 %; EOSINOPHILS # (AUTO) 0.1 10^3/uL (0.0-0.7); HGB - HEMOGLOBIN 12.6 g/dL (12.0-16.0); LYMPHOCYTES # (AUTO) 0.8 10^3/uL (1.5-3.5); LYMPHOCYTES % (AUTO) 11.6 %; MEAN CORPUSCULAR HEMOGLOBIN 32.6 pg (27.0-31.0); MEAN CORPUSCULAR HGB CONC 34.1 g/dL (32.0-36.0); MEAN CORPUSCULAR VOLUME 95.3 fL (81.0-99.0); MEAN PLATELET VOLUME 10.2 fL (7.9-10.8); MONOCYTES # (AUTO) 0.8 10^3/uL (0.0-1.0); MONOCYTES % (AUTO) 11.2 %; NEUTROPHILS # (AUTO) 5.4 10^3/uL (1.5-6.6); NEUTROPHILS % (AUTO) 75.5 %; PLT - PLATELET COUNT 151 10^3/uL (130-450); RED BLOOD COUNT 3.87 10^6/uL (4.20-5.40); RED CELL DISTRIBUTION WIDTH 12.2 % (12.0-15.0); WHITE BLOOD COUNT 7.2 x10^3/uL (4.8-10.8)
[2019-08-19 15:19] LABS: ALBUMIN 3.9 g/dL (3.2-5.5); CALCIUM 9.7 mg/dL (8.5-10.3); CREATININE 1.1 mg/dL (0.4-1.0); TOTAL PROTEIN 7.9 g/dL (6.7-8.2)
[2019-08-19] MEDS ORDERED: SODIUM CHLORIDE 0.9% 1,000 ML IV ONE (15:24)
--- NOTE | 2019-08-19 16:48 | Ultrasound Report ---
Reason: L leg pain, swelling. Procedure Date: 08/19/2019 Accession Number: [id number] / [id number] Procedure: US - Duplex Ext Veins Left CPT Code: Final Report FULL RESULT: EXAM: LEFT LOWER EXTREMITY VENOUS ULTRASOUND EXAM DATE: 08/19/2019 02:54 PM. CLINICAL HISTORY: Left leg pain, swelling. COMPARISON: None. TECHNIQUE: Real-time sonographic vascular imaging was performed by the [employer] through the lower extremity utilizing both color-flow and Doppler spectral analysis. Multiple provider relations representative static images were saved for review. FINDINGS: Common Femoral Vein (CFV): Normal. CFV-GSV Junction: Normal. Profunda Femoral Vein (PFV): Normal. Femoral Vein (FV) Prox: Normal. Femoral Vein (FV) Mid: Normal. Femoral Vein (FV) Dist: Normal. Popliteal Vein: Normal. Posterior Tibial Veins: No definite clot. No occlusive deep venous thrombosis. Visualization limited. Peroneal Veins: Consistent with nonocclusive clot versus chronic recanalized clot in the mid peroneal vein. Contralateral Side CFV: Normal. Other: There are prominent groin lymph nodes largest measuring 3 x 0.8 x 1.3 cm which were tender on examination. IMPRESSION: 1. Mid peroneal vein nonocclusive acute deep venous thrombosis versus chronic recanalized deep vein thrombus. Other deep veins are patent in the lower extremity. 2. Painful left groin lymph nodes. Probably reactive. RADIA The critical result notification system was initiated by Dr. Monroe Lala at 04:47 PM on 08/19/2019. The above critical result findings were discussed with Deandre Mckinley by Dr. Monroe Lala at 04:52 PM on 08/19/2019.
[2019-08-19 17:05] VITALS: BP 173/76
--- NOTE | 2019-08-20 12:38 | ED Physician Documentation ---
ED Addendum - Addendum Addendum: 08/20/19 12:38 Took call from pharmacy; her insurance did not cover the prescription for Xarelto as written, they did cover a "starter pack" though and I authorized to change to this.
== END 2019-08-19 17:30 | disposition home or self-care (01) ==
LOC: ED 14:23
DX: I82.452 Acute embolism and thrombosis of left peroneal vein (principal); L03.116 Cellulitis of left lower limb; I10 Essential (primary) hypertension; F17.200 Nicotine dependence, unspecified, uncomplicated
CPT/HCPCS: 36415; 80053; 83690; 85025; 85651; 86140; 96360; 96361; 99284

== ENCOUNTER 2019-09-10 17:16 | Emergency (ER) | payer MEDICARE, MEDICAID ==
[2019-09-10 18:21] LABS: BASOPHILS % (AUTO) 0.8 %; EOSINOPHILS # (AUTO) 0.2 10^3/uL (0.0-0.7); EOSINOPHILS % (AUTO) 5.9 %; HGB - HEMOGLOBIN 11.4 g/dL (12.0-16.0); LYMPHOCYTES # (AUTO) 1.1 10^3/uL (1.5-3.5); LYMPHOCYTES % (AUTO) 28.1 %; MEAN CORPUSCULAR HEMOGLOBIN 33.4 pg (27.0-31.0); MEAN CORPUSCULAR VOLUME 95.6 fL (81.0-99.0); MEAN PLATELET VOLUME 9.7 fL (7.9-10.8); MONOCYTES # (AUTO) 0.5 10^3/uL (0.0-1.0); MONOCYTES % (AUTO) 11.7 %; NEUTROPHILS # (AUTO) 2.1 10^3/uL (1.5-6.6); NEUTROPHILS % (AUTO) 53.2 %; PLT - PLATELET COUNT 215 10^3/uL (130-450); RED BLOOD COUNT 3.41 10^6/uL (4.20-5.40); RED CELL DISTRIBUTION WIDTH 12.7 % (12.0-15.0); WHITE BLOOD COUNT 3.9 x10^3/uL (4.8-10.8)
[2019-09-10] MEDS ORDERED: IOVERSOL 320 100 ML VIAL IVP ONE ×2 (18:28→19:15)
[2019-09-10 18:29] LABS: PT - PROTHROMBIN TIME 22.4 secs (9.9-12.6)
[2019-09-10 18:33] LABS: ALBUMIN 4.1 g/dL (3.2-5.5); ALBUMIN/GLOBULIN RATIO 1.2 (1.0-2.2); BILIRUBIN,TOTAL 0.7 mg/dL (0.2-1.0); CALCIUM 9.7 mg/dL (8.5-10.3); CREATININE 1.3 mg/dL (0.4-1.0); TOTAL PROTEIN 7.5 g/dL (6.7-8.2)
[2019-09-10 18:36] LABS: PARTIAL THROMBOPLASTIN TIME 37.2 secs (24.9-33.3)
--- NOTE | 2019-09-10 18:48 | ED Physician Documentation ---
PD HPI GI BLEED - Stated complaint Stated Complaint: RECTAL BLEEDING - Chief complaint Chief Complaint: Abd Pain - History obtained from History obtained from: Patient - History of Present Illness Timing - onset: Today Timing - duration: Days (1) Timing - details: Gradual onset Pain level max: 2 Pain level now: 1 Associated symptoms: BRBPR (states noted blood on toilet paper today.), Abdominal pain (Mild left lower quadrant abdominal pain). No: Black/tarry stool, Diarrhea, Constipation, Chest pain Contributing factors: Anticoagulated (Xarelto for DVT). No: Sick contact, Bad food, Travel, Recent antibiotics, Alcohol use, Aspirin use, NSAID use, Stress, Diabetes Improved by: Other (Nothing) Worsened by: Other (Nothing) Similar symptoms before: Has not had sx before Review of Systems Constitutional: denies: Fever Cardiac: denies: Chest pain / pressure Respiratory: denies: Cough GI: denies: Vomiting, Diarrhea Skin: denies: Rash Musculoskeletal: denies: Neck pain, Back pain Neurologic: denies: Headache PD PAST MEDICAL HISTORY - Past Medical History Past Medical History: Yes Cardiovascular: Hypertension Respiratory: Asthma Neuro: Seizure disorder Endocrine/Autoimmune: None GI: None 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 CREDIT RISK: None : None HEENT: None Psych: None Musculoskeletal: None Derm: None - Past Surgical History Past Surgical History: Yes /MANAGER CREDIT RISK: section, Tubal ligation, Hysterectomy - Present Medications Home Medications: Ambulatory Orders Medication Instructions Recorded Confirmed Atenolol 50 mg PO 01/15/13 05/17/14 Albuterol [Ventolin Hfa] 2 puffs INH Q4H PRN #1 inhaler 05/17/14 Metoprolol Tartrate 100 mg PO DAILY 03/31/18 09/10/19 Rivaroxaban [Xarelto] 15 mg PO BID #42 tablet 08/19/19 09/10/19 Ciprofloxacin HCl [Cipro] 500 mg PO BID #20 tablet 09/10/19 Fluticasone/Vilanterol [Breo 1 puffs IN DAILY 09/10/19 09/10/19 Ellipta 200-25 Mcg INH] lisinopriL [Lisinopril] 20 mg ORAL DAILY 09/10/19 09/10/19 metroNIDAZOLE [Flagyl] 500 mg PO Q8H #30 tablet 09/10/19 - Allergies Allergies/Adverse Reactions: Allergies Allergy/AdvReac Type Severity Reaction Status Date / Time erythromycin base Allergy Severe Respiratory Verified 09/10/19 17:22 [Erythromycin Base] Penicillins Allergy Hives Verified 09/10/19 17:22 Tetracyclines Allergy Rash Verified 09/10/19 17:22 - Social History Does the pt smoke?: Yes Smoking Status: Current every day smoker Does the pt drink ETOH?: No Does the pt have substance abuse?: No - Immunizations Immunizations are current?: Yes - POLST Patient has POLST: No PD ED PE NORMAL - Vitals Vital signs reviewed: Yes - General General: Alert and oriented X 3, No acute distress, Well developed/nourished - HEENT HEENT: Moist mucous membranes - Neck Neck: Supple, no meningeal sign - Cardiac Cardiac: RRR, Strong equal pulses - Respiratory Respiratory: No respiratory distress, Clear bilaterally - Abdomen Abdomen: Soft, Non tender, Non distended - Rectal Rectal: Other (Mild external hemorrhoid, no inflammation. No bleeding.) - Derm Derm: Warm and dry - Extremities Extremities: No edema - Neuro Neuro: Alert and oriented X 3 - Psych Psych: Normal mood, Normal affect Results - Vitals Vitals: Vital Signs - 24 hr 09/10/19 09/10/19 09/10/19 17:22 18:34 20:31 Temperature 37 C Heart Rate 69 67 70 Respiratory 18 16 18 Rate Blood Pressure 199/77 H 167/78 H 158/84 H O2 Saturation 98 98 96 Oxygen O2 Source Room air - Labs Labs: Laboratory Tests 09/10/19 09/10/19 09/10/19 18:10 18:10 18:10 WBC 3.9 L RBC 3.41 L Hgb 11.4 L Hct 32.6 L MCV 95.6 MCH 33.4 H MCHC 35.0 RDW 12.7 Plt Count 215 MPV 9.7 Neut # (Auto) 2.1 Lymph # (Auto) 1.1 L Levy # (Auto) 0.5 Eos # (Auto) 0.2 Baso # (Auto) 0.0 Absolute Nucleated RBC 0.00 Nucleated RBC % 0.0 PT 22.4 H INR 2.0 H APTT 37.2 H Sodium Potassium Chloride Carbon Dioxide Anion Gap BUN Creatinine Estimated GFR (MDRD) Glucose Calcium Total Bilirubin AST ALT Alkaline Phosphatase Total Protein Albumin Globulin Albumin/Globulin Ratio Lipase Blood Type A POSITIVE Antibody Screen NEGATIVE 09/10/19 18:10 WBC RBC Hgb Hct MCV MCH MCHC RDW Plt Count MPV Neut # (Auto) Lymph # (Auto) Levy # (Auto) Eos # (Auto) Baso # (Auto) Absolute Nucleated RBC Nucleated RBC % PT INR APTT Sodium 133 L Potassium 3.7 Chloride 97 L Carbon Dioxide 28 Anion Gap 8.0 BUN 15 Creatinine 1.3 H Estimated GFR (MDRD) 41 L Glucose 103 H Calcium 9.7 Total Bilirubin 0.7 AST 30 ALT 16 Alkaline Phosphatase 51 Total Protein 7.5 Albumin 4.1 Globulin 3.4 Albumin/Globulin Ratio 1.2 Lipase 73 H Blood Type Antibody Screen - Rads (name of study) CT abdomen pelvis Radiology: Prelim report reviewed, EMP read contemporaneously, See rad report (1. Colonic diverticulosis with focal area of pericolonic edema in the distal descending colon consistent with uncomplicated diverticulitis. 2. Hyperattenuating area near the gallbladder neck may represent a small polyp, unchanged. 3. Unchanged hypoattenuating subcapsular lesion in the right hepatic lobe. ) PD MEDICAL DECISION MAKING - ED course Complexity details: reviewed results, re-evaluated patient, considered differential, d/w patient ED course: 69-year-old female with slight amount of bright red blood per rectum today. She is on Xarelto. Does have a small amount of diverticulitis on CT scan, she is allergic to penicillins, will place her on Cipro and Flagyl. She is well- appearing, nontoxic. Afebrile. No active bleeding in the emergency department. We will have her follow-up closely with her doctor for further care. Patient counseled regarding signs and symptoms for which I believe and urgent re- evaluation would be necessary. Patient with good understanding of and agreement to plan and is comfortable going home at this time This document was made in part using voice recognition software. While efforts are made to proofread this document, sound alike and grammatical errors may occur. Departure - Departure Disposition: 01 Home, Self Care Clinical Impression: Diverticulitis Condition: Good Instructions: ED Diverticulitis Follow-Up: MARCE ESPINO MD [Primary Care Provider] - Within 1 week Prescriptions: Ciprofloxacin HCl [Cipro] 500 mg PO BID #20 tablet metroNIDAZOLE [Flagyl] 500 mg PO Q8H #30 tablet Comments: Take all antibiotics until gone. Return if you worsen. Decrease your Xarelto as scheduled tomorrow Discharge Date/Time: 09/10/19 20:31
--- NOTE | 2019-09-10 19:54 | CT Report ---
Reason: LLQ abd pain, rectal bleeding Procedure Date: 09/10/2019 Accession Number: [id number] / [id number] Procedure: CT - Abdomen/Pelvis W CPT Code: Final Report FULL RESULT: EXAM: CT ABDOMEN AND PELVIS EXAM DATE: 09/10/2019 07:13 PM. CLINICAL HISTORY: Left lower quadrant abdominal pain and rectal bleeding COMPARISONS: ABDOMEN W/WO 01/05/2019 11:45 AM ABDOMEN W/WO 01/30/2019 10:18 AM. TECHNIQUE: Routine helical CT imaging was performed through the abdomen and pelvis. IV contrast: OPTI 320 100ML. Enteric contrast: No. Reconstructions: Coronal and sagittal. In accordance with CT protocol optimization, one or more of the following dose reduction techniques were utilized for this exam: automated exposure control, adjustment of mA and/or KV based on patient size, or use of iterative reconstructive technique. FINDINGS: Lung bases are clear. The visible heart is normal in size. There is no pericardial effusion. The previously described subcapsular hypoattenuating lesion in hepatic segment 8/4 A is reidentified and unchanged in size measuring 1.9 x 1.1 cm. No additional liver lesions are seen. The gallbladder is minimally distended. A 6 mm area of hyperattenuation is seen near the gallbladder neck and appears unchanged compared to the prior CT and MRI and may represent a small polyp. No gallbladder wall thickening or pericholecystic fluid is seen. No biliary dilatation is seen. The spleen, pancreas, and adrenal glands are within normal limits. Postoperative changes from the partial nephrectomy are reidentified in the lower pole of the right kidney with scarring adjacent to the surgical clips no renal mass or hydronephrosis is seen. Colonic diverticulosis is seen. Minimal edema is seen adjacent to the distal descending colon. The distal colon is collapsed. Retained stool is seen throughout the proximal colon. There is no evidence of bowel obstruction. No free intraperitoneal air or ascites is seen. The stomach is distended and contains an air-fluid level. Post appendectomy surgical clips are seen. No loculated intra-abdominal fluid collection is present. There is no lymphadenopathy. Atherosclerotic plaque calcifications are seen in the aorta and its branches. The abdominal aorta is normal in caliber. The bladder is normal. Multiple phleboliths are seen in the pelvis. The uterus and ovaries are absent. There is no free pelvic fluid. The bones are osteopenic. Multilevel degenerative disk disease is seen in the lumbar spine. There is a thoracolumbar dextroscoliosis with compensatory lower lumbar levoscoliosis. IMPRESSION: 1. Colonic diverticulosis with focal area of pericolonic edema in the distal descending colon consistent with uncomplicated diverticulitis. 2. Hyperattenuating area near the gallbladder neck may represent a small polyp, unchanged. 3. Unchanged hypoattenuating subcapsular lesion in the right hepatic lobe. RADIA
[2019-09-10] MEDS ORDERED: CIPROFLOXACIN 250 MG TABLET PO STA (20:11)
[2019-09-10] MEDS ORDERED: metroNIDAZOLE 250 MG TABLET PO STA (20:11)
[2019-09-10 20:32] VITALS: BP 158/84
== END 2019-09-10 20:31 | disposition home or self-care (01) ==
LOC: ED 17:16
DX: K57.32 Diverticulitis of large intestine without perforation or abscess without bleeding (principal); I10 Essential (primary) hypertension; F17.200 Nicotine dependence, unspecified, uncomplicated
CPT/HCPCS: 36415; 74177; 80053; 83690; 85025; 85610; 85730; 86850; 86900; 86901; 99284; A9270; Q9967

== ENCOUNTER 2019-12-22 14:09 | Outpatient (CLI) | payer MEDICARE, MEDICAID ==
[2019-12-22 14:48] LABS: BASOPHILS % (AUTO) 0.8 %; EOSINOPHILS # (AUTO) 0.2 10^3/uL (0.0-0.7); EOSINOPHILS % (AUTO) 5.6 %; HGB - HEMOGLOBIN 13.1 g/dL (12.0-16.0); LYMPHOCYTES # (AUTO) 0.8 10^3/uL (1.5-3.5); LYMPHOCYTES % (AUTO) 23.1 %; MEAN CORPUSCULAR HEMOGLOBIN 33.2 pg (27.0-31.0); MEAN CORPUSCULAR HGB CONC 34.6 g/dL (32.0-36.0); MEAN CORPUSCULAR VOLUME 95.9 fL (81.0-99.0); MEAN PLATELET VOLUME 9.7 fL (7.9-10.8); MONOCYTES # (AUTO) 0.4 10^3/uL (0.0-1.0); MONOCYTES % (AUTO) 11.3 %; NEUTROPHILS # (AUTO) 2.1 10^3/uL (1.5-6.6); NEUTROPHILS % (AUTO) 58.9 %; PLT - PLATELET COUNT 185 10^3/uL (130-450); RED BLOOD COUNT 3.95 10^6/uL (4.20-5.40); RED CELL DISTRIBUTION WIDTH 12.2 % (12.0-15.0); WHITE BLOOD COUNT 3.6 x10^3/uL (4.8-10.8)
[2019-12-22 15:01] LABS: BILIRUBIN,URINE NEGATIVE (NEGATIVE); GLUCOSE, URINE (UA) NEGATIVE (NEGATIVE); KETONES,URINE (UA) NEGATIVE (NEGATIVE); LEUKOCYTE ESTERASE, URINE NEGATIVE (NEGATIVE); NITRITE,URINE NEGATIVE (NEGATIVE); OCCULT BLOOD,URINE NEGATIVE (NEGATIVE); PROTEIN,URINE NEGATIVE (NEGATIVE); UROBILINOGEN,URINE 0.2 (NORMAL) E.U./dL (NORMAL)
[2019-12-22 15:02] LABS: ALBUMIN/GLOBULIN RATIO 1.1 (1.0-2.2); ALKALINE PHOSPHATASE 47 IU/L (42-121); ALT ALANINE AMINOTRANSFERASE 15 IU/L (10-60); AST ASPARTATE AMINOTRANSFERASE 24 IU/L (10-42); BUN - BLOOD UREA NITROGEN 21 mg/dL (6-20); CALCIUM 9.6 mg/dL (8.5-10.3); CARBON DIOXIDE - CO2 28 mmol/L (21-32); CHLORIDE 94 mmol/L (101-111); CREATININE 1.1 mg/dL (0.4-1.0); GLUCOSE 103 mg/dL (70-100); SODIUM 129 mmol/L (135-145); TOTAL PROTEIN 7.5 g/dL (6.7-8.2)
[2019-12-22 15:03] LABS: CRP - C-REACTIVE PROTEIN < 1.0 mg/dL (0-1.0)
[2019-12-22 15:12] LABS: BACTERIA,URINE Few /HPF (None Seen); CLARITY,URINE CLEAR (CLEAR); RBC,URINE None Seen /HPF (0-5); SQUAMOUS EPITHELIAL CELL,UR RARE Squamous (<= Few)
[2019-12-25 09:19] LABS: ANA SCREEN NEGATIVE (NEGATIVE)
== END 2019-12-22 14:10 | disposition home or self-care (01) ==
LOC: LAB 14:09
PROVIDERS: ATTEND Family Medicine
DX: M25.50 Pain in unspecified joint (principal)
CPT/HCPCS: 36415; 80053; 81001; 82553; 85025; 85651; 86038; 86140; 87086

== ENCOUNTER 2020-02-25 14:10 | Outpatient (CLI) | payer MEDICARE, MEDICAID ==
[2020-02-25 15:26] LABS: HGB - HEMOGLOBIN 12.8 g/dL (12.0-16.0); MEAN CORPUSCULAR HEMOGLOBIN 32.7 pg (27.0-31.0); MEAN CORPUSCULAR HGB CONC 34.1 g/dL (32.0-36.0); MEAN CORPUSCULAR VOLUME 95.7 fL (81.0-99.0); MEAN PLATELET VOLUME 9.7 fL (7.9-10.8); RED BLOOD COUNT 3.92 10^6/uL (4.20-5.40); RED CELL DISTRIBUTION WIDTH 12.4 % (12.0-15.0); WHITE BLOOD COUNT 4.8 x10^3/uL (4.8-10.8)
[2020-02-25 15:51] LABS: CREATININE,URINE 16.9 mg/dL
[2020-02-25 15:52] LABS: TOTAL PROTEIN,URINE TIMED < 6 mg/dL
[2020-02-25 16:17] LABS: CREATININE 1.1 mg/dL (0.4-1.0)
== END 2020-02-25 14:11 | disposition home or self-care (01) ==
LOC: LAB 14:10
PROVIDERS: ATTEND Internal Medicine Nephrology
DX: N05.9 Unspecified nephritic syndrome with unspecified morphologic changes (principal); D70.9 Neutropenia, unspecified; D63.1 Anemia in chronic kidney disease; R80.9 Proteinuria, unspecified
CPT/HCPCS: 36415; 80048; 82570; 84156; 85027

== ENCOUNTER 2020-03-06 12:57 | Outpatient (CLI) | payer MEDICARE, MEDICAID ==
--- NOTE | 2020-03-13 15:51 | Mammography Report ---
BILATERAL DIGITAL SCREENING MAMMOGRAM 3D/2D: 03/06/2020 CLINICAL: Routine screening. Comparison is made to exams dated: 08/25/2016 mammogram and 01/09/2014 ultrasound - [facility]. The tissue of both breasts is heterogeneously dense. This may lower the sensitivity of ma mmography. There is a round asymmetry with an obscured margin in the right breast sub-areolar depth medial regio n seen on the craniocaudal view only. This is more prominent. There is a round asymmetry with an obscured and circumscribed margin in the left breast middle depth lateral region seen on the craniocaudal view only. Finding is seen only on tomography. No other significant masses or calcifications are seen in either breast. IMPRESSION: INCOMPLETE: NEEDS ADDITIONAL IMAGING EVALUATION 1) The round asymmetry in the right breast sub-areolar depth medial region seen on the craniocaudal v iew only is indeterminate. -Additional views with possible ultrasound are recommended. 2) The round asymmetry in the left breast middle depth lateral region seen on the craniocaudal view o nly is indeterminate. -Additional views with possible ultrasound are recommended. This exam was interpreted at Station ID: [id number]. NOTE: For mammograms, a report in lay terms will be sent to the patient. Approximately 15% of breast malignancies will not be visualized mammographically. In the management of a palpable breast mass, a negative mammogram must not discourage biopsy of a clinically suspicious lesion. Electronically Signed By: Gerardo Cat M.D. slc/:03/10/2020 17:24:55 ACR BI-RADS Category 0: Incomplete 3340F PARENCHYMAL PATTERN: (D) - The breast(s) demonstrate(s) heterogeneously dense fibroglandular parenchy ma. BI-RADS CATEGORY: (0) - 0 Mammo and [place] [id number] Immediate follow-up LATERALITY: (B)
== END 2020-03-06 12:58 | disposition home or self-care (01) ==
LOC: DI.N 12:57
DX: Z12.31 Encounter for screening mammogram for malignant neoplasm of breast (principal); N64.89 Other specified disorders of breast
CPT/HCPCS: 77063; 77067

== ENCOUNTER 2020-04-17 12:56 | Emergency (ER) | payer MEDICARE, MEDICAID ==
--- NOTE | 2020-04-17 14:19 | XRAY Report ---
PROCEDURE: Ribs w/PA Chest RT INDICATIONS: fall; r/o fx, ptx TECHNIQUE: 2 views of the right ribs were acquired, along with a single view chest. COMPARISON: None. FINDINGS: Surgical changes and devices: None. Bones and chest wall: Minimally displaced fracture involving right posterior lateral ninth rib is see n.. No suspicious bony lesions. Overlying soft tissues appear unremarkable. Lungs and pleura: No pleural effusions or pneumothorax. Lungs appear clear. Mediastinum: Mediastinal contours appear normal. Heart size is normal. IMPRESSION: Minimally displaced right posterior lateral ninth rib fracture. No pulmonary infiltrate or pneumothor ax. Reviewed by: Abraham Broussard MD on 04/17/2020 1:17 PM [facility] Approved by: Abraham Broussard MD on 04/17/2020 1:17 PM [facility] Station ID: [id number]
--- NOTE | 2020-04-17 14:24 | ED Physician Documentation ---
History of Present Illness - Stated complaint Stated Complaint: R SIDE PX - Chief complaint Chief Complaint: Trauma Ch/Bk - History obtained from History obtained from: Patient - History of Present Illness Timing: Prior to arrival - Additonal information Additional information: 70-year-old female presents to the emergency department for evaluation of right-sided rib pain after a fall 2 days ago into a metal filing cabinet at home. She did not lose consciousness strike her head. She is not anticoagulated. However she has had a very sharp focus of pain in the right posterior rib with mild amount of ecchymosis since. She reports pain with very deep inspiration. She does have a history of COPD and is an active smoker. Review of Systems Constitutional: reports: Reviewed and negative Eyes: reports: Reviewed and negative Ears: reports: Reviewed and negative Nose: reports: Reviewed and negative Throat: reports: Reviewed and negative Cardiac: reports: Reviewed and negative Respiratory: reports: Dyspnea, Cough (at baseline) GI: reports: Reviewed and negative : reports: Reviewed and negative Skin: reports: Reviewed and negative Musculoskeletal: reports: Other (Posterior lateral rib pain) Neurologic: reports: Generalized weakness Psychiatric: reports: Reviewed and negative Endocrine: reports: Reviewed and negative PD PAST MEDICAL HISTORY - Past Medical History Cardiovascular: Hypertension Respiratory: Asthma Neuro: Seizure disorder Endocrine/Autoimmune: None GI: None MAT ROLLER: None : None HEENT: None Psych: None Musculoskeletal: None Derm: None - Past Surgical History Past Surgical History: Yes /MAT ROLLER: section, Tubal ligation, Hysterectomy - Present Medications Home Medications: Ambulatory Orders Medication Instructions Recorded Confirmed Atenolol 50 mg PO 01/15/13 05/17/14 Albuterol [Ventolin Hfa] 2 puffs INH Q4H PRN #1 inhaler 05/17/14 Metoprolol Tartrate 100 mg PO DAILY 03/31/18 09/10/19 Rivaroxaban [Xarelto] 15 mg PO BID #42 tablet 08/19/19 09/10/19 Ciprofloxacin HCl [Cipro] 500 mg PO BID #20 tablet 09/10/19 Fluticasone/Vilanterol [Breo 1 puffs IN DAILY 09/10/19 09/10/19 Ellipta 200-25 Mcg INH] lisinopriL [Lisinopril] 20 mg ORAL DAILY 09/10/19 09/10/19 metroNIDAZOLE [Flagyl] 500 mg PO Q8H #30 tablet 09/10/19 Hydrocodone/Acetaminophen [[place] 1 each PO TID PRN #15 tablet 04/17/20 5-325 Tablet] - Allergies Allergies/Adverse Reactions: Allergies Allergy/AdvReac Type Severity Reaction Status Date / Time erythromycin base Allergy Severe Respiratory Verified 04/17/20 13:03 [Erythromycin Base] Penicillins Allergy Hives Verified 04/17/20 13:03 Tetracyclines Allergy Rash Verified 04/17/20 13:03 - Social History Does the pt smoke?: Yes Smoking Status: Current every day smoker Does the pt drink ETOH?: No Does the pt have substance abuse?: No - Immunizations Immunizations are current?: Yes - POLST Patient has POLST: No PD ED PE EXPANDED - General General: Alert, No acute distress, Well developed/nourished - HEENT HEENT: Atraumatic, PERRL - Neck Neck: Supple w/out meningeal sx - Cardiac Cardiac: Regular Rate, Radial strong equal, Pedal strong equal, Cap refill < 2 sec - Respiratory Respiratory: Clear to ausultation akira. No: Distress, Labored, Gasping, Accessory mm use - Abdomen Abdomen: Normal Bowel sounds. No: Tender to palpation - Back Back: Other (Right lower posterior lateral rib pain with palpation. Small area of ecchymosis 1 cm in size. No crepitus. Patient able to take a full deep breath.) - Derm Derm: Bruising (Posterior lateral rib right side) - Extremities Extremities: Normal. No: Deformity, Tenderness - Neuro Neuro: Alert and Oriented X 3. No: Confused, Disoriented Results - Vitals Vitals: Vital Signs - 24 hr 04/17/20 13:03 Temperature 36.8 C Heart Rate 70 Respiratory 16 Rate O2 Saturation 98 Oxygen O2 Source Room air - Rads (name of study) Ribs with chest PA Radiology: Final report received PD MEDICAL DECISION MAKING - ED course Complexity details: reviewed results, re-evaluated patient, considered differential ED course: 70-year-old female presents to the emergency department with acute right lower lateral rib pain after falling into a metal cabinet 2 days ago. X-ray does show mildly displaced right posterior lateral ninth rib fracture. There is no associated infiltrate or pneumothorax. On exam patient does not have crepitus or evidence of a flail chest. She is able to take a full I will write a prescription for a limited bowel of hydrocodone and give the patient an incentive spirometer to help encourage pulmonary toilet. Patient is to follow-up with your primary care doctor for reevaluation. Emergent return precautions discussed for concerns of infection or failure of pain to improve Departure - Departure Disposition: 01 Home, Self Care Clinical Impression: Rib fracture Qualifiers: Encounter type: initial encounter Rib fracture type: single rib Fracture type: closed Laterality: right Qualified Code(s): S22.31XA - Fracture of one rib, right side, initial encounter for closed fracture Condition: Stable Record reviewed to determine appropriate education?: Yes Instructions: ED Fx Rib Follow-Up: Sylvia Porras ARNP [Primary Care Provider] - Prescriptions: Hydrocodone/Acetaminophen [[place] 5-325 Tablet] 1 each PO TID PRN #15 tablet PRN Reason: Pain Comments: The x-ray of your chest and ribs shows that you do have a single right lower lateral rib that is fractured. However there is no findings of a collapsed lung or infection in the lung. It is really important that you do complete pulmonary toilet by taking very deep breaths and coughing. We are giving you an incentive spirometer to encourage you to do this at home. Please use it 6 times a day. I am also prescribing a little bit of hydrocodone to help with your fractured rib. You cannot drive if taking this. I do recommend ice to the rib that hurts as well as a lidocaine patch [id number]. These are called Salonpas. If at any point you are having worsening pain, any fevers, bloody sputum or difficulty breathing please return immediately to the ER. I would like you to follow-up with your primary care doctor for further evaluation of this fractured rib. It may take several weeks to heal and they should help you with long-term pain management
[2020-04-17] MEDS ORDERED: HYDROmorphone 1 MG/ML CARPUJECT IM STA (14:33)
[2020-04-17 14:38] VITALS: BP 147/73
== END 2020-04-17 15:18 | disposition home or self-care (01) ==
LOC: ED 12:56
DX: S22.31XA Fracture of one rib, right side, initial encounter for closed fracture (principal); W22.09XA Striking against other stationary object, initial encounter; Y92.001 Dining room of unspecified non-institutional (private) residence as the place of occurrence of the external cause; F17.200 Nicotine dependence, unspecified, uncomplicated; J44.9 Chronic obstructive pulmonary disease, unspecified; J45.998 Other asthma; I10 Essential (primary) hypertension
CPT/HCPCS: 71101; 96374; 99284; J1170; 80053; 83690; 85025

== ENCOUNTER 2020-05-08 14:25 | Outpatient (CLI) | payer MEDICARE, MEDICAID ==
--- NOTE | 2020-05-08 14:54 | XRAY Report ---
PROCEDURE: Hip w/Pelvis 1V LT INDICATIONS: DEGENERATIVE JOINT DISEASE LEFT HIP TECHNIQUE: AP pelvis with lateral view(s) of the bilateral hip(s). COMPARISON: None. FINDINGS: Bones: No fractures or dislocations. Pelvic ring appears intact. No suspicious bony lesions. Mild hip joint space narrowing and periarticular osteophyte formation. Soft tissues: The visualized bowel gas pattern is normal. No suspicious soft tissue calcifications. IMPRESSION: Bilateral hip osteoarthritis. No acute fracture. No osseous lesion. If symptoms and/or c linical suspicion for pathology continue, further assessment with repeat plain films, or advanced sade ging (e.g., CT, MRI, or bone scan) is recommended for further assessment. Reviewed by: Tello Albert MD on 05/08/2020 2:53 PM PST Approved by: Tello Albert MD on 05/08/2020 2:53 PM PST Station ID: [id number]
== END 2020-05-08 23:59 | disposition home or self-care (01) ==
LOC: DI.S 14:25
PROVIDERS: ATTEND Emergency Medicine
DX: M16.0 Bilateral primary osteoarthritis of hip (principal)

== ENCOUNTER 2020-06-25 07:00 | Outpatient (CLI) | payer MEDICARE, MEDICAID ==
--- NOTE | 2020-06-25 16:32 | XRAY Report ---
PROCEDURE: Wrist 3 View RT INDICATIONS: R WRIST PX TECHNIQUE: 3 views of the wrist were acquired. COMPARISON: Hand plain films on the right, 03/12/2019 FINDINGS: Bones: No fractures or dislocations but there is severe degenerative osteoarthritis at the base of t he first metacarpal bone, having progressed from 2019, which would obscure visualization of a fractur e in this area and the underlying trapezium. No distal radius or ulna fractures found.. No suspiciou s bony lesions. Scaphoid view: Not obtained but the scaphoid visualized appears normal. Soft tissues: No suspicious soft tissue calcifications. IMPRESSION: No definite acute osseous injury is identified but there is quite severe osteoarthritis at the base o f the first metacarpal and the adjacent trapezium. Reviewed by: Monroe Mathis MD on 06/25/2020 4:30 PM PST Approved by: Monroe Mathis MD on 06/25/2020 4:30 PM [facility] Station ID: [id number]
--- NOTE | 2020-06-25 16:33 | XRAY Report ---
PROCEDURE: Elbow 3 View RT INDICATIONS: R ELBOW JOINT PX TECHNIQUE: 3 views of the elbow were acquired. COMPARISON: None FINDINGS: Bones: No fractures or dislocations. No suspicious bony lesions. Soft tissues: No elbow joint effusion. No suspicious soft tissue calcifications. IMPRESSION: No trauma to the elbow is found. If ligamentous injury is clinically suspected follow-up by MR scanni ng likely is warranted. For example, biceps tendon insertion assessment. Reviewed by: Monroe Mathis MD on 06/25/2020 4:31 PM PST Approved by: Monroe Mathis MD on 06/25/2020 4:31 PM PST Station ID: [id number]
== END 2020-06-25 23:59 | disposition home or self-care (01) ==
LOC: DI.N 07:00
PROVIDERS: ATTEND Family Medicine
DX: M18.11 Unilateral primary osteoarthritis of first carpometacarpal joint, right hand (principal); M19.031 Primary osteoarthritis, right wrist; M25.521 Pain in right elbow

== ENCOUNTER 2020-07-08 15:48 | Emergency (ER) | payer MEDICARE, MEDICAID ==
[2020-07-08 16:30] LABS: BASOPHILS % (AUTO) 0.3 %; EOSINOPHILS # (AUTO) 0.1 10^3/uL (0.0-0.7); HCT - HEMATOCRIT 33.5 % (37.0-47.0); HGB - HEMOGLOBIN 11.4 g/dL (12.0-16.0); LYMPHOCYTES # (AUTO) 0.8 10^3/uL (1.5-3.5); LYMPHOCYTES % (AUTO) 11.4 %; MEAN CORPUSCULAR HEMOGLOBIN 33.1 pg (27.0-31.0); MEAN CORPUSCULAR VOLUME 97.4 fL (81.0-99.0); MEAN PLATELET VOLUME 8.9 fL (7.9-10.8); MONOCYTES # (AUTO) 0.6 10^3/uL (0.0-1.0); MONOCYTES % (AUTO) 8.2 %; NEUTROPHILS # (AUTO) 5.7 10^3/uL (1.5-6.6); NEUTROPHILS % (AUTO) 78.5 %; PLT - PLATELET COUNT 290 10^3/uL (130-450); RED BLOOD COUNT 3.44 10^6/uL (4.20-5.40); RED CELL DISTRIBUTION WIDTH 12.3 % (12.0-15.0); WHITE BLOOD COUNT 7.2 x10^3/uL (4.8-10.8)
[2020-07-08] MEDS ORDERED: LIDOCAINE VISCOUS 2% 15 ML UDC MM STA (16:35)
[2020-07-08] MEDS ORDERED: HYDROmorphone 1 MG/ML CARPUJECT IVP STA (16:35)
[2020-07-08] MEDS ORDERED: PANTOPRAZOLE 40 MG VIAL IVP STA (16:35)
[2020-07-08] MEDS ORDERED: ONDANSETRON 4 MG/2 ML VIAL IVP STA (16:35)
--- NOTE | 2020-07-08 16:36 | ED Physician Documentation ---
History of Present Illness - Stated complaint Stated Complaint: ABD PX - Chief complaint Chief Complaint: Abd Pain - Additonal information Additional information: 70-year-old female presents the emergency department for evaluation of 1 week e pigastric pain with associated vomiting. She describes the pain as sharp nonradiating. She does not necessarily associated with eating. She denies black or bloody stools. She denies any fevers dysuria urgency or frequency. Past surgical history does include surgery for kidney of the cancer, previous appendectomy. Patient is a tobacco user as well as a moderate drinker. No history of alcohol withdrawal. No history of pancreatitis. Review of Systems Constitutional: denies: Fever, Chills Eyes: reports: Reviewed and negative Ears: reports: Reviewed and negative Nose: reports: Reviewed and negative Throat: reports: Reviewed and negative Cardiac: denies: Chest pain / pressure, Palpitations, Pedal edema Respiratory: denies: Dyspnea, Cough GI: reports: Abdominal Pain, Nausea, Vomiting. denies: Constipation, Hematemesis, Bloody / black stool : denies: Dysuria, Frequency Skin: denies: Rash, Lesions PD PAST MEDICAL HISTORY - Past Medical History Past Medical History: Yes Cardiovascular: Hypertension Respiratory: Asthma Neuro: Seizure disorder Endocrine/Autoimmune: None GI: None IT SECURITY ARCHITECT: None : None HEENT: None Psych: None Musculoskeletal: None Derm: None - Past Surgical History Past Surgical History: Yes /IT SECURITY ARCHITECT: section, Tubal ligation, Hysterectomy - Present Medications Home Medications: Ambulatory Orders Medication Instructions Recorded Confirmed Atenolol 50 mg PO 01/15/13 05/17/14 Albuterol [Ventolin Hfa] 2 puffs INH Q4H PRN #1 inhaler 05/17/14 Metoprolol Tartrate 100 mg PO DAILY 03/31/18 09/10/19 Rivaroxaban [Xarelto] 15 mg PO BID #42 tablet 08/19/19 09/10/19 Ciprofloxacin HCl [Cipro] 500 mg PO BID #20 tablet 09/10/19 Fluticasone/Vilanterol [Breo 1 puffs IN DAILY 09/10/19 09/10/19 Ellipta 200-25 Mcg INH] lisinopriL [Lisinopril] 20 mg ORAL DAILY 09/10/19 09/10/19 metroNIDAZOLE [Flagyl] 500 mg PO Q8H #30 tablet 09/10/19 Hydrocodone/Acetaminophen [[place] 1 each PO TID PRN #15 tablet 04/17/20 5-325 Tablet] Ondansetron Odt [Zofran] 4 mg TL Q6H PRN #10 tablet 07/08/20 Pantoprazole [Protonix] 40 mg PO DAILY #30 tablet 07/08/20 Sucralfate [Carafate] 1 gm PO QID #60 tablet 07/08/20 - Allergies Allergies/Adverse Reactions: Allergies Allergy/AdvReac Type Severity Reaction Status Date / Time erythromycin base Allergy Severe Respiratory Verified 07/08/20 15:58 [Erythromycin Base] Penicillins Allergy Hives Verified 07/08/20 15:58 Sulfa (Sulfonamide Allergy Unknown Verified 07/08/20 15:58 Antibiotics) Tetracyclines Allergy Rash Verified 07/08/20 15:58 - Social History Does the pt smoke?: Yes Smoking Status: Current every day smoker Does the pt drink ETOH?: Yes Does the pt have substance abuse?: No - Immunizations Immunizations are current?: Yes - POLST Patient has POLST: No PD ED PE EXPANDED - General General: Alert, No acute distress - Cardiac Cardiac: Regular Rate, Regular Rhythm, Radial strong equal, Pedal strong equal, Cap refill < 2 sec - Respiratory Respiratory: Clear to ausultation akira. No: Labored - Abdomen Abdomen: Normal Bowel sounds, Tender to palpation, Epigastric (Epigastric abdominal pain. + guarding; NO rebound. Negative James's.) - Back Back: Normal exam - Derm Derm: Normal color, Warm and dry - Neuro Neuro: Alert and Oriented X 3, CNII-XII intact - GCS Eye Opening: Spontaneous Motor: Obeys Commands Verbal: Oriented Total: 15 Results - Vitals Vitals: Vital Signs - 24 hr 07/08/20 07/08/20 07/08/20 15:58 16:27 18:02 Temperature 37.1 C Heart Rate 74 71 84 Respiratory 18 16 16 Rate Blood Pressure 182/83 H 166/69 H 140/79 H O2 Saturation 100 100 100 Oxygen O2 Source Room air - EKG (time done) 1710 Rate: Rate (enter#) (71) Rhythm: NSR [place]: Normal Intervals: Normal OK QRS: Normal Ischemia: Normal ST segments Compare to prior EKG: Old EKG unavailable Computer interpretation: Agree with computer - Labs Labs: Laboratory Tests 07/08/20 07/08/20 07/08/20 14:20 16:15 16:15 WBC 7.2 RBC 3.44 L Hgb 11.4 L Hct 33.5 L MCV 97.4 MCH 33.1 H MCHC 34.0 RDW 12.3 Plt Count 290 MPV 8.9 Neut # (Auto) 5.7 Lymph # (Auto) 0.8 L [place] # (Auto) 0.6 Eos # (Auto) 0.1 Baso # (Auto) 0.0 Absolute Nucleated RBC 0.00 Nucleated RBC % 0.0 Sodium 130 L Potassium 4.0 Chloride 92 L Carbon Dioxide 26 Anion Gap 12.0 BUN 11 Creatinine 0.9 Estimated GFR (MDRD) 62 L Glucose 120 H Calcium 9.8 Total Bilirubin 0.5 AST 40 ALT 26 Alkaline Phosphatase 117 Total Protein 7.7 Albumin 3.7 Globulin 4.0 Albumin/Globulin Ratio 0.9 L Lipase 100 H Urine Color YELLOW Urine Clarity CLEAR Urine pH 6.5 Ur Specific [place] <=1.005 Urine Protein NEGATIVE Urine Glucose (UA) NEGATIVE Urine Ketones NEGATIVE Urine Occult Blood NEGATIVE Urine Nitrite NEGATIVE Urine Bilirubin NEGATIVE Urine Urobilinogen 0.2 (NORMAL) Ur Leukocyte Esterase NEGATIVE Ur Microscopic Review NOT INDICATED Urine Culture Comments NOT INDICATED - Rads (name of study) CT abd Radiology: Final report received (Prominent wall thickening of the first portion of the duodenum with associated mucosal enhancement. Mild wall thickening of the adjacent gallbladder likely represents secondary reactive changes. Cholelithiasis is present but gallbladder incompletely distended. ), See rad report Abd US Radiology: See rad report (No findings of cholecystitis) PD MEDICAL DECISION MAKING - ED course Complexity details: reviewed results, re-evaluated patient, considered differential, d/w patient ED course: 62-year-old female presented to the emergency department for evaluation of 1 week epigastric pain with associated vomiting. No melena no hematemesis. She is a moderate drinker and tobacco user. Screening labs showed a mild anemia with a hemoglobin of 11. Her lipase was 100. CT scan showed likely gastritis and duodenitis but no perforation. There were gallstones in the gallbladder and an ultrasound did not reveal secondary findings of cholecystitis. Following analgesia here in the emergency department as well as nausea medication patient was tolerating clear liquids. This case was discussed with on-call surgeon Dr. Dumont. Would like the patient placed on Protonix and Carafate and he would like to see her later in the office this week to schedule an EGD. I did discuss with the patient her alcohol and tobacco use and discussed the importance of limiting intake as it is likely contributing to her symptoms. Emergent return precautions were discussed Departure - Departure Disposition: 01 Home, Self Care Clinical Impression: Gastritis Qualifiers: Gastritis type: unspecified gastritis Chronicity: acute Gastritis bleeding: without bleeding Qualified Code(s): K29.00 - Acute gastritis without bleeding EtOH dependence Qualifiers: Substance use status: unspecified alcohol-induced disorder Qualified Code(s): F10.29 - Alcohol dependence with unspecified alcohol-induced disorder Condition: Stable Record reviewed to determine appropriate education?: Yes Instructions: ED Gastritis Follow-Up: Km Dumont MD [Provider Admit Priv/Credential] - Prescriptions: Sucralfate [Carafate] 1 gm PO QID #60 tablet Pantoprazole [Protonix] 40 mg PO DAILY #30 tablet Ondansetron Odt [Zofran] 4 mg TL Q6H PRN #10 tablet PRN Reason: Nausea / Vomiting Comments: I hope you are feeling better soon. The CT of your abdomen showed inflammation in your stomach and the first part of your intestine. This is called duodenitis and gastritis. This is likely due to alcohol use. It is important that you stop smoking and quit drinking as you are able. I would like you to take the Carafate, a medication that will coat your stomach and help reduce the pain, 4 times a day. Please take the Protonix or acid it professional once a day. I have also prescribed Zofran and medication for nausea that can be used 2-3 times a day. Over the next 12 to 24 hours please limit your oral intake to clear liquids. If you find that the pain is worsening, you vomit, have bloody vomit, black or bloody stools please return immediately to the ER. It is important that you call the surgical department/Dr. Dumont tomorrow to schedule follow-up later this week. Dr. Dumont would like to do an EGD on you where they place a camera into your stomach and esophagus to look for ulcers.
[2020-07-08 16:38] LABS: ALBUMIN 3.7 g/dL (3.2-5.5); ALBUMIN/GLOBULIN RATIO 0.9 (1.0-2.2); BILIRUBIN,TOTAL 0.5 mg/dL (0.2-1.0); CALCIUM 9.8 mg/dL (8.5-10.3); CREATININE 0.9 mg/dL (0.4-1.0); TOTAL PROTEIN 7.7 g/dL (6.7-8.2)
[2020-07-08 16:46] LABS: BILIRUBIN,URINE NEGATIVE (NEGATIVE); GLUCOSE, URINE (UA) NEGATIVE (NEGATIVE); KETONES,URINE (UA) NEGATIVE (NEGATIVE); LEUKOCYTE ESTERASE, URINE NEGATIVE (NEGATIVE); NITRITE,URINE NEGATIVE (NEGATIVE); OCCULT BLOOD,URINE NEGATIVE (NEGATIVE); PH,URINE 6.5 PH (5.0-7.5); PROTEIN,URINE NEGATIVE (NEGATIVE); UROBILINOGEN,URINE 0.2 (NORMAL) E.U./dL (NORMAL)
[2020-07-08 16:48] LABS: CLARITY,URINE CLEAR (CLEAR)
[2020-07-08] MEDS ORDERED: IOVERSOL 320 100 ML VIAL IVP ONE ×2 (17:19→17:38)
[2020-07-08] MEDS ORDERED: SODIUM CHLORIDE 0.9% 1,000 ML IV STA (18:02)
--- NOTE | 2020-07-08 18:25 | CT Report ---
PROCEDURE: Abdomen/Pelvis W INDICATIONS: epigastric pain CONTRAST: IV CONTRAST: Optiray 320 ml: 100 PO CONTRAST: *NO PO CONTRAST TECHNIQUE: After the administration of intravenous contrast, 5 mm thick sections acquired from the diaphragms to the symphysis. 5 mm thick coronal and sagittal reformats were acquired. For radiation dose reducti on, the following was used: automated exposure control, adjustment of mA and/or kV according to sachin ent size. COMPARISON: CT of the pelvis 09/10/2019, CT abdomen 12/09/2018. MRI abdomen 01/30/2019. FINDINGS: Image quality: Excellent. ABDOMEN: Lung bases: There is mild atelectasis and scarring the lung bases. Heart size is enlarged. Solid organs: There is a hypoattenuating peripheral lesion anteriorly in segment 4A of the left hepa tic lobe measuring up to 1.6 x 1.2 cm which appears stable in size compared to prior studies dating b ack to 01/05/2019. A few intraluminal gallstones are demonstrated within the gallbladder which demonst rates wall enhancement and mild wall thickening. The gallbladder is contiguous with the adjacent thic kened duodenal wall. Biliary system is non dilated. The spleen is normal in size. The pancreas demon strates indistinct margins along the descending portion of the duodenum likely representing secondary reactive changes. No adrenal nodules. Kidneys demonstrate no hydronephrosis. Peritoneum and bowel: There is prominent concentric wall thickening and mucosal enhancement of the f irst portion of the duodenum with adjacent mild fat stranding. Findings are compatible with a duodeni tis. There is mild wall thickening also noted in the gastric antrum. Remainder of the small large bow el demonstrates normal caliber and wall thickness. There is colonic diverticulosis without acute dive rticulitis. No free fluid or air. Nodes and vessels: No retroperitoneal or mesenteric adenopathy by size criteria. Aorta and inferior vena cava are normal in size. Miscellaneous: No ventral hernias. PELVIS: Genitourinary: Bladder wall thickness is normal. Miscellaneous: No inguinal hernias or adenopathy. Bones: No suspicious bony lesions. No vertebral body compression fractures. IMPRESSION: 1. Prominent wall thickening in the first portion of the duodenum with associated mucosal enhancement likely represents an infectious or inflammatory duodenitis including possible peptic ulcer disease. No definite free air to suggest perforation. 2. Mild wall thickening of the adjacent gallbladder likely represent secondary reactive changes. Chol elithiasis is present but the gallbladder is incompletely distended. Cholecystitis cannot be fully ex cluded but is considered less likely. If clinically indicated further evaluation may be obtained with ultrasound. 3. Indistinct appearance of the pancreas along the duodenum likely also represent secondary reactive changes. 4. Small hypoattenuating lesion anteriorly in the liver appears stable compared to the prior studies. Given stability over time, findings likely represent a benign process. Reviewed by: Marvel Young MD on 07/08/2020 5:24 PM [facility] Approved by: Marvel Young MD on 07/08/2020 5:24 PM [facility] Station ID: [id number]
[2020-07-08] MEDS ORDERED: SUCRALFATE 1 GM/10 ML UDC PO STA (19:40)
[2020-07-08 20:02] VITALS: BP 148/72
--- NOTE | 2020-07-08 20:10 | Ultrasound Report ---
PROCEDURE: Abdomen Limited INDICATIONS: epigastric pain; eval for biliary colic TECHNIQUE: Real-time focused scanning was performed of the abdomen, with image documentation. COMPARISON: None. FINDINGS: Liver is echogenic. Right hepatic cyst measuring 1.0 x 0.8 x 1.2 cm. Gallbladder contains echogenic calculi measuring up to 1.3 cm. There is no definite gallbladder wall thickening. No pericholecystic fluid or sonographic James sign. No bile duct dilatation. The pancrea s is grossly unremarkable. Right kidney measures 9.4 cm. There is right pelviectasis. Renal cyst kaur uring 1.2 cm. IMPRESSION: Cholelithiasis however no other sonographic criteria for acute cholecystitis. Please correlate clinic ally and with LFTs Coarsely echogenic liver suggesting hepatic steatosis/diffuse hepatocellular disease. Please correlat e with LFTs. Right renal cyst, and right pelviectasis Hepatic cyst Reviewed by: Gilbert Moy MD on 07/08/2020 8:08 PM PST Approved by: Gilbert Moy MD on 07/08/2020 8:08 PM PST Station ID: [id number]
== END 2020-07-08 20:32 | disposition home or self-care (01) ==
LOC: ED 15:48
DX: K29.00 Acute gastritis without bleeding (principal); F10.29 Alcohol dependence with unspecified alcohol-induced disorder; D64.9 Anemia, unspecified; F17.200 Nicotine dependence, unspecified, uncomplicated
CPT/HCPCS: 36415; 74177; 76705; 80053; 81003; 83690; 85025; 93005; 96361; 96374; 96375; 99284; A9270; J1170; Q9967; 81001; 87086

== ENCOUNTER 2020-12-26 15:59 | Outpatient (CLI) | payer MEDICARE, MEDICAID ==
[2020-12-26 20:19] LABS: BASOPHILS % (AUTO) 0.3 %; EOSINOPHILS # (AUTO) 0.1 10^3/uL (0.0-0.7); EOSINOPHILS % (AUTO) 1.3 %; HCT - HEMATOCRIT 31.8 % (37.0-47.0); LYMPHOCYTES # (AUTO) 0.9 10^3/uL (1.5-3.5); LYMPHOCYTES % (AUTO) 14.7 %; MEAN CORPUSCULAR HEMOGLOBIN 28.7 pg (27.0-31.0); MEAN CORPUSCULAR HGB CONC 31.4 g/dL (32.0-36.0); MEAN CORPUSCULAR VOLUME 91.4 fL (81.0-99.0); MONOCYTES # (AUTO) 0.9 10^3/uL (0.0-1.0); MONOCYTES % (AUTO) 13.6 %; NEUTROPHILS # (AUTO) 4.4 10^3/uL (1.5-6.6); NEUTROPHILS % (AUTO) 69.8 %; PLT - PLATELET COUNT 229 10^3/uL (130-450); RED BLOOD COUNT 3.48 10^6/uL (4.20-5.40); RED CELL DISTRIBUTION WIDTH 14.1 % (12.0-15.0); WHITE BLOOD COUNT 6.3 x10^3/uL (4.8-10.8)
[2020-12-26 20:36] LABS: ALBUMIN/GLOBULIN RATIO 1.1 (1.0-2.2); BILIRUBIN,TOTAL 0.7 mg/dL (0.2-1.0); CALCIUM 9.4 mg/dL (8.5-10.3); CREATININE 0.7 mg/dL (0.4-1.0); POTASSIUM 3.9 mmol/L (3.5-5.0); TOTAL PROTEIN 7.6 g/dL (6.7-8.2)
== END 2020-12-26 16:00 | disposition home or self-care (01) ==
LOC: LAB.S 15:59
PROVIDERS: ATTEND Physician Assistant
DX: R60.0 Localized edema (principal); E87.1 Hypo-osmolality and hyponatremia
CPT/HCPCS: 36415; 80053; 83930; 84300; 85025

== ENCOUNTER 2021-01-03 14:19 | Outpatient (CLI) | payer MEDICARE, MEDICAID ==
[2021-01-03 16:41] LABS: BASOPHILS % (AUTO) 0.4 %; EOSINOPHILS # (AUTO) 0.1 10^3/uL (0.0-0.7); EOSINOPHILS % (AUTO) 2.5 %; HCT - HEMATOCRIT 32.2 % (37.0-47.0); HGB - HEMOGLOBIN 10.4 g/dL (12.0-16.0); LYMPHOCYTES # (AUTO) 1.1 10^3/uL (1.5-3.5); LYMPHOCYTES % (AUTO) 18.4 %; MEAN CORPUSCULAR HEMOGLOBIN 28.5 pg (27.0-31.0); MEAN CORPUSCULAR HGB CONC 32.3 g/dL (32.0-36.0); MEAN CORPUSCULAR VOLUME 88.2 fL (81.0-99.0); MEAN PLATELET VOLUME 9.3 fL (7.9-10.8); MONOCYTES # (AUTO) 0.4 10^3/uL (0.0-1.0); MONOCYTES % (AUTO) 7.2 %; NEUTROPHILS # (AUTO) 4.1 10^3/uL (1.5-6.6); NEUTROPHILS % (AUTO) 71.1 %; PLT - PLATELET COUNT 300 10^3/uL (130-450); RED BLOOD COUNT 3.65 10^6/uL (4.20-5.40); RED CELL DISTRIBUTION WIDTH 13.8 % (12.0-15.0); WHITE BLOOD COUNT 5.7 x10^3/uL (4.8-10.8)
[2021-01-03 16:58] LABS: % IRON SATURATION 6 % (20-50); ALKALINE PHOSPHATASE 169 IU/L (42-121); ALT ALANINE AMINOTRANSFERASE 26 IU/L (10-60); AST ASPARTATE AMINOTRANSFERASE 42 IU/L (10-42); BILIRUBIN,TOTAL 0.6 mg/dL (0.2-1.0); BUN - BLOOD UREA NITROGEN 13 mg/dL (6-20); CALCIUM 9.5 mg/dL (8.5-10.3); CARBON DIOXIDE - CO2 25 mmol/L (21-32); CHLORIDE 96 mmol/L (101-111); CHOL/HDL RATIO 2.2 (<4.4); CHOLESTEROL 187 mg/dL; CREATININE 0.9 mg/dL (0.4-1.0); GFR - MDRD 62 (>89); GLUCOSE 87 mg/dL (70-100); HDL CHOLESTEROL 86 mg/dL; IRON 27 ug/dL (28-170); LDL CHOLESTEROL,CALCULATED 92 mg/dL; LDL/HDL RATIO 1.1 (<4.4); POTASSIUM 4.3 mmol/L (3.5-5.0); SODIUM 132 mmol/L (135-145); TOTAL IRON BINDING CAPACITY 469 ug/dL (250-450); TRANSFERRIN 335 mg/dL (192-382); TRIGLYCERIDES 46 mg/dL; VLDL CHOLESTEROL 9 mg/dL
[2021-01-03 17:16] LABS: FERRITIN 10.9 ng/mL (11.0-306.8)
[2021-01-03 17:19] LABS: FOLATE 15.83 ng/mL (5.90 - >24.8)
== END 2021-01-03 14:20 | disposition home or self-care (01) ==
LOC: LAB.N 14:19
PROVIDERS: ATTEND Physician Assistant
DX: R60.0 Localized edema (principal); E87.1 Hypo-osmolality and hyponatremia; I10 Essential (primary) hypertension; E66.9 Obesity, unspecified; D64.9 Anemia, unspecified
CPT/HCPCS: 36415; 80053; 80061; 82607; 82728; 82746; 83540; 83721; 84466; 85025

== ENCOUNTER 2021-02-16 08:54 | Day surgery (SDC) | payer MEDICARE, MEDICAID ==
[2021-02-16] MEDS ORDERED: LACTATED RINGERS 1,000 ML IV ONE (09:29)
--- NOTE | 2021-02-16 10:33 | ANESTHESIA ---
Pre-Anesthesia VS, & Labs - Diagnosis vomiting - Procedure EGD with biopsy Vital Signs: Temp Pulse Resp BP Pulse Ox 36.8 C 59 L 18 151/81 H 100 02/16/21 09:00 02/16/21 09:00 02/16/21 09:00 02/16/21 09:00 02/16/21 09:00 Height: 5 ft 7 in Weight (kg): 70.7 kg Body Mass Index: 24.4 BMI Classification: Healthy weight - NPO >8 hours - Is Patient ?: No Home Medications and Allergies Home Medications: Ambulatory Orders Furosemide [Lasix] 02/16/21 Atenolol 50 mg PO 01/15/13 Metoprolol Tartrate 100 mg PO DAILY 03/31/18 Fluticasone/Vilanterol [Breo Ellipta 200-25 Mcg INH] 1 puffs IN DAILY 09/10/19 lisinopriL [Lisinopril] 20 mg ORAL DAILY 09/10/19 Furosemide [Lasix] 20 02/16/21 Allergies/Adverse Reactions: Allergies Allergy/AdvReac Type Severity Reaction Status Date / Time erythromycin base Allergy Severe Respiratory Verified 07/08/20 15:58 [Erythromycin Base] Penicillins Allergy Hives Verified 07/08/20 15:58 Sulfa (Sulfonamide Allergy Unknown Verified 07/08/20 15:58 Antibiotics) Tetracyclines Allergy Rash Verified 07/08/20 15:58 Anes History & Medical History - Anesthetic History Anesthesia Complications: reports: No previous complications - Medical History Cardiovascular: reports: Hypertension Pulmonary: reports: Asthma Gastrointestinal: reports: None Urinary: reports: None Neuro: reports: Seizure disorder Musculoskeletal: reports: None Endocrine/Autoimmune: reports: None Blood Disorders: reports: None Skin: reports: None Smoking Status: Current every day smoker History of Cancer?: Yes (skin) - Surgical History General: Gynecologic: reports: section, Tubal ligation, Hysterectomy Exam General: Alert Dental: Dentures full Upper, Dentures full Lower Mouth Opening: Greater than 4 Fingerbreadths Mallampati classification: II Thyromental Distance: greater than 6 cm Respiratory: Lungs clear Cardiovascular: Regular rate, Normal S1, Normal S2 Plan Anesthesia Type: Total IV Consent for Procedure(s) Verified and Reviewed: Yes Code Status: Attempt Resuscitation ASA classification: 2-Mild systemic disease Is this case an emergency?: No
[2021-02-16] MEDS ORDERED: MIDAZOLAM 2 MG/2 ML VIAL ONE (10:56)
[2021-02-16] MEDS ORDERED: LIDOCAINE 1% ABBOJECT 50 MG/5 ML SYRINGE ONE (10:58)
[2021-02-16] MEDS ORDERED: PROPOFOL 200 MG/20 ML VIAL IVP ONE (11:03)
[2021-02-16] MEDS ORDERED: LACTATED RINGERS 800 ML IV ONE (11:29)
[2021-02-16 12:00] VITALS: BP 110/67
--- NOTE | 2021-02-16 16:43 | ANESTHESIA POST OP EVALUATION ---
Anesthesia Post Eval - Post Anesthesia Eval Vitals: Last Vital Signs Temp 36.9 C 02/16/21 11:59 Pulse 64 02/16/21 11:59 Resp 16 02/16/21 11:59 BP 110/67 02/16/21 11:59 Pulse Ox 95 02/16/21 11:59 CV Function Including HR & BP: Stable Pain Control: Satisfactory Nausea & Vomiting: Negative Mental Status: Baseline Respiratory Status: Airway Patent Hydration Status: Satisfactory Anesthesia Complications: None
== END 2021-02-16 08:55 | disposition home or self-care (01) ==
LOC: SDS 08:54
PROVIDERS: ATTEND Surgery
PROC: 0DB78ZX Excision of Stomach, Pylorus, Via Natural or Artificial Opening Endoscopic, Diagnostic (ICD-10-PCS; principal; 2021-02-16 09:15)
DX: K29.50 Unspecified chronic gastritis without bleeding (principal); K57.30 Diverticulosis of large intestine without perforation or abscess without bleeding; J44.9 Chronic obstructive pulmonary disease, unspecified; I10 Essential (primary) hypertension; F41.9 Anxiety disorder, unspecified; G40.909 Epilepsy, unspecified, not intractable, without status epilepticus; F17.200 Nicotine dependence, unspecified, uncomplicated; E51.2 Wernicke's encephalopathy; F03.90 Unspecified dementia, unspecified severity, without behavioral disturbance, psychotic disturbance, mood disturbance, and anxiety; E66.9 Obesity, unspecified; Z68.34 Body mass index [BMI] 34.0-34.9, adult; G89.29 Other chronic pain; M54.50 Low back pain, unspecified; Z79.899 Other long term (current) drug therapy
CPT/HCPCS: 43239; J7120

== ENCOUNTER 2021-03-19 14:41 | Outpatient (CLI) | payer MEDICARE, MEDICAID ==
[2021-03-19 20:06] LABS: CALCIUM 9.6 mg/dL (8.5-10.3); CREATININE 0.9 mg/dL (0.4-1.0); POTASSIUM 4.4 mmol/L (3.5-5.0)
[2021-03-19 20:12] LABS: BASOPHILS % (AUTO) 0.4 %; EOSINOPHILS # (AUTO) 0.1 10^3/uL (0.0-0.7); EOSINOPHILS % (AUTO) 1.3 %; HCT - HEMATOCRIT 35.8 % (37.0-47.0); HGB - HEMOGLOBIN 11.5 g/dL (12.0-16.0); LYMPHOCYTES # (AUTO) 1.2 10^3/uL (1.5-3.5); LYMPHOCYTES % (AUTO) 22.1 %; MEAN CORPUSCULAR HEMOGLOBIN 26.2 pg (27.0-31.0); MEAN CORPUSCULAR HGB CONC 32.1 g/dL (32.0-36.0); MEAN CORPUSCULAR VOLUME 81.5 fL (81.0-99.0); MEAN PLATELET VOLUME 9.6 fL (7.9-10.8); MONOCYTES # (AUTO) 0.6 10^3/uL (0.0-1.0); MONOCYTES % (AUTO) 11.3 %; NEUTROPHILS # (AUTO) 3.4 10^3/uL (1.5-6.6); NEUTROPHILS % (AUTO) 64.7 %; PLT - PLATELET COUNT 255 10^3/uL (130-450); RED BLOOD COUNT 4.39 10^6/uL (4.20-5.40); RED CELL DISTRIBUTION WIDTH 18.1 % (12.0-15.0); WHITE BLOOD COUNT 5.2 x10^3/uL (4.8-10.8)
== END 2021-03-19 14:42 | disposition home or self-care (01) ==
LOC: LAB.S 14:41
PROVIDERS: ATTEND Registered Nurse
DX: D64.9 Anemia, unspecified (principal); R60.0 Localized edema; E87.1 Hypo-osmolality and hyponatremia
CPT/HCPCS: 36415; 80048; 85025

== ENCOUNTER 2021-07-05 14:01 | Outpatient (CLI) | payer MEDICARE, MEDICAID ==
--- NOTE | 2021-07-05 14:47 | XRAY Report ---
PROCEDURE: Chest 1 View X-Ray INDICATIONS: RIB PAIN, RIGHT SIDED TECHNIQUE: One view of the chest was acquired. COMPARISON: 04/17/2020 FINDINGS: Surgical changes and devices: None. Lungs and pleura: No pleural effusions or pneumothorax. Lungs are clear. Mediastinum: Mediastinal contours appear normal. Heart size is normal. Bones and chest wall: No suspicious bony lesions. Overlying soft tissues appear unremarkable. No a cute rib fractures visualized. IMPRESSION: Chest without acute cardiopulmonary abnormalities. No focal airspace disease. Reviewed by: Porter Ibarra MD on 07/05/2021 1:45 PM [facility] Approved by: Porter Ibarra MD on 07/05/2021 1:45 PM [facility] Station ID: [id number]
[2021-07-05 18:06] LABS: BASOPHILS % (AUTO) 0.5 %; EOSINOPHILS # (AUTO) 0.2 10^3/uL (0.0-0.7); EOSINOPHILS % (AUTO) 3.7 %; HCT - HEMATOCRIT 35.6 % (37.0-47.0); HGB - HEMOGLOBIN 11.7 g/dL (12.0-16.0); LYMPHOCYTES # (AUTO) 1.1 10^3/uL (1.5-3.5); LYMPHOCYTES % (AUTO) 27.6 %; MEAN CORPUSCULAR HEMOGLOBIN 28.9 pg (27.0-31.0); MEAN CORPUSCULAR HGB CONC 32.9 g/dL (32.0-36.0); MEAN CORPUSCULAR VOLUME 87.9 fL (81.0-99.0); MEAN PLATELET VOLUME 9.7 fL (7.9-10.8); MONOCYTES # (AUTO) 0.5 10^3/uL (0.0-1.0); MONOCYTES % (AUTO) 13.4 %; NEUTROPHILS # (AUTO) 2.2 10^3/uL (1.5-6.6); NEUTROPHILS % (AUTO) 54.6 %; PLT - PLATELET COUNT 228 10^3/uL (130-450); RED BLOOD COUNT 4.05 10^6/uL (4.20-5.40); RED CELL DISTRIBUTION WIDTH 16.2 % (12.0-15.0)
[2021-07-05 18:17] LABS: ALBUMIN 3.7 g/dL (3.2-5.5); CALCIUM 9.6 mg/dL (8.5-10.3); POTASSIUM 3.9 mmol/L (3.5-5.0); TOTAL PROTEIN 7.4 g/dL (6.7-8.2)
[2021-07-05 18:19] LABS: BILIRUBIN,URINE NEGATIVE (NEGATIVE); GLUCOSE, URINE (UA) NEGATIVE (NEGATIVE); KETONES,URINE (UA) NEGATIVE (NEGATIVE); LEUKOCYTE ESTERASE, URINE NEGATIVE (NEGATIVE); NITRITE,URINE NEGATIVE (NEGATIVE); OCCULT BLOOD,URINE NEGATIVE (NEGATIVE); PROTEIN,URINE NEGATIVE (NEGATIVE); UROBILINOGEN,URINE 0.2 (NORMAL) E.U./dL (NORMAL)
[2021-07-05 18:56] LABS: BACTERIA,URINE Moderate /HPF (None Seen); CLARITY,URINE CLEAR (CLEAR); RBC,URINE None Seen /HPF (0-5); SQUAMOUS EPITHELIAL CELL,UR MOD Squamous (<= Few); WBC,URINE 0-3 /HPF (0-5)
== END 2021-07-05 14:02 | disposition home or self-care (01) ==
LOC: DI.S 14:01
PROVIDERS: ATTEND Registered Nurse
DX: R07.81 Pleurodynia (principal); R55 Syncope and collapse; E87.1 Hypo-osmolality and hyponatremia; Z91.81 History of falling
CPT/HCPCS: 36415; 80053; 81001; 84300; 85025

== ENCOUNTER 2022-02-01 18:07 | Outpatient (CLI) | payer MEDICAID, MEDICARE ==
--- NOTE | 2022-02-01 16:55 | XRAY Report ---
PROCEDURE: Knee 3 View RT INDICATIONS: right knee pain TECHNIQUE: 3 views of the right knee(s) were acquired. COMPARISON: None. FINDINGS: Bones: No fractures or dislocations. No suspicious bony lesions. Mild to moderate medial and mild lateral as well as patellofemoral compartment narrowing. No erosions. Soft tissues: No joint effusion. No suspicious soft tissue calcifications. IMPRESSION: Mild to moderate tricompartmental arthritic change. Reviewed by: Holly Zimmerman MD on 02/01/2022 4:54 PM PDT Approved by: Holly Zimmerman MD on 02/01/2022 4:54 PM PDT Station ID: [id number]
== END 2022-02-01 18:08 | disposition home or self-care (01) ==
LOC: DI.S 18:07
PROVIDERS: ATTEND Registered Nurse
DX: M17.11 Unilateral primary osteoarthritis, right knee (principal); Z87.81 Personal history of (healed) traumatic fracture

== ENCOUNTER 2022-09-02 12:06 | Outpatient (CLI) | payer MEDICARE, MEDICAID ==
--- NOTE | 2022-09-02 13:46 | XRAY Report ---
PROCEDURE: Knee 3 View LT INDICATIONS: LEFT KNEE SPRAIN TECHNIQUE: 3 views of the left knee(s) were acquired. COMPARISON: None. FINDINGS: Bones: No fractures or dislocations. No suspicious bony lesions. Soft tissues: Moderate knee joint effusion. No suspicious soft tissue calcifications or masses. IMPRESSION: Moderate knee joint effusion. No displaced fracture. If there remains a high clinical concern for fra cture, consider cross-sectional imaging now. If pain persists, consider repeat x-ray in 10-14 days or cross-sectional imaging. Reviewed by: Henri Cary on 09/02/2022 1:44 PM PDT Approved by: Henri Cary on 09/02/2022 1:44 PM PDT Station ID: [id number]
== END 2022-09-02 23:59 | disposition home or self-care (01) ==
LOC: DI.S 12:06
PROVIDERS: ATTEND Emergency Medicine
DX: M25.462 Effusion, left knee (principal)

== ENCOUNTER 2022-10-05 12:47 | Outpatient (CLI) | payer MEDICARE, MEDICAID ==
--- NOTE | 2022-10-05 17:00 | MRI Report ---
PROCEDURE: KNEE WO - LT INDICATIONS: SPRAIN OF LEFT KNEE TECHNIQUE: Noncontrast sagittal PD fast spin echo and T2 fast spin echo with fat saturation, sagittal 3-D gradie nt sequence with fat saturation; coronal T1 spin echo and PD fast spin echo with fat saturation, and axial PD fast spin echo with fat saturation through the knee. COMPARISON: Plain films dated 09/02/2022 FINDINGS: Image quality: Degraded by motion artifact. Menisci: Linear horizontal high T2 signal intensity traverses the inner, middle, peripheral thirds of the posterior horn medial meniscus, demonstrating inferior articular surface extension. Lateral meni scus is grossly intact. Cruciate ligaments: The anterior and posterior cruciate ligaments appear intact. Medial structures: There is partial thickness tearing involving the anterior fibers of the medial col lateral ligament. Visualized portions of the pes anserinus tendons appear normal. No abnormal bursal fluid. Lateral structures: The lateral collateral ligament, long and short heads of the biceps femoris tend on appear intact. The popliteus tendon appears normal. Iliotibial band appears normal. Anterior structures: The quadriceps and patellar tendons appear intact. Patellar alignment is xochitl l. No femoral trochlear dysplasia or ventral trochlear prominence. No edema in the infrapatellar fa t pad. Bones and cartilage: There is moderate ill-defined T2 signal elevation within the medial femoral cond yle, consistent with contusion. Mild ill-defined T2 signal lesion within the anterior and posterior w eightbearing aspect of the lateral femoral condyle and within the posterior weightbearing aspect of t he lateral tibial plateau, consistent with contusion. Mild articular cartilage loss diffusely overlie s the weightbearing aspects of the medial femoral condyle and medial tibial plateau as well as the me dial and lateral patellar facets. Joint space: There is a small knee joint effusion and a small Goetz's cyst. Normal appearing synovi al plicae are incidentally noted. IMPRESSION: 1. Medial meniscal tearing. 2. Contusions within the distal femur and proximal tibia. 3. Partial-thickness tearing of the medial collateral ligament. 4. Knee joint effusion. Reviewed by: Tello Albert MD on 10/05/2022 4:58 PM PDT Approved by: Tello Albert MD on 10/05/2022 4:58 PM PDT Station ID: [id number]
== END 2022-10-05 12:48 | disposition home or self-care (01) ==
LOC: DI 12:47
PROVIDERS: ATTEND Emergency Medicine
DX: S83.242A Other tear of medial meniscus, current injury, left knee, initial encounter (principal); S70.12XA Contusion of left thigh, initial encounter; S80.12XA Contusion of left lower leg, initial encounter; S83.412A Sprain of medial collateral ligament of left knee, initial encounter; M25.462 Effusion, left knee

== ENCOUNTER 2023-04-06 17:34 | Outpatient (CLI) | payer MEDICARE, MEDICAID | END 2023-04-06 17:35 | disposition critical access hospital (66) | LOC: EMS 17:34 | DX: I95.9 Hypotension, unspecified (principal); R06.2 Wheezing; R41.82 Altered mental status, unspecified | CPT/HCPCS: A0425; A0427 ==

== ENCOUNTER 2023-04-06 17:55 | Emergency (ER) | payer MEDICARE, MEDICAID ==
--- NOTE | 2023-04-06 18:41 | ED Physician Documentation ---
History of Present Illness - Stated complaint Stated Complaint: HYPOTENSION - Chief complaint Chief Complaint: Cardiac - History obtained from History obtained from: Patient, EMS - History of Present Illness Timing: Today Pain level max: 0 Pain level now: 0 - Additonal information Additional information: 73-year-old female states that her home health nurse took her blood pressure and it was 71/50. Patient was fully asymptomatic. No headache. No dizziness. No chest pain. No shortness of breath. 911 was called. When EMS arrived her blood pressure was 128/56. Patient is fully asymptomatic here. Review of Systems Constitutional: denies: Fever, Chills GI: denies: Vomiting, Diarrhea PD PAST MEDICAL HISTORY - Past Medical History Cardiovascular: Hypertension Respiratory: Asthma, COPD Neuro: Seizure disorder Endocrine/Autoimmune: None GI: None DELIVERY ENGINEER: None : None HEENT: None Psych: None Musculoskeletal: None Derm: None - Past Surgical History Past Surgical History: Yes General:  /DELIVERY ENGINEER: section, Tubal ligation, Hysterectomy - Present Medications Home Medications: Ambulatory Orders Medication Instructions Recorded Confirmed Atenolol 50 mg PO 01/15/13 05/17/14 Albuterol [Ventolin Hfa] 2 puffs INH Q4H PRN #1 inhaler 05/17/14 Metoprolol Tartrate 100 mg PO DAILY 03/31/18 09/10/19 Fluticasone/Vilanterol [Breo 1 puffs IN DAILY 09/10/19 09/10/19 Ellipta 200-25 Mcg INH] lisinopriL [Lisinopril] 20 mg ORAL DAILY 09/10/19 09/10/19 Ondansetron Odt [Zofran] 4 mg TL Q6H PRN #10 tablet 07/08/20 Pantoprazole [Protonix] 40 mg PO DAILY #30 tablet 07/08/20 Furosemide [Lasix] 20 02/16/21 Ciprofloxacin HCl [Cipro] 500 mg PO BID #14 tablet 11/27/22 - Allergies Allergies/Adverse Reactions: Allergies Allergy/AdvReac Type Severity Reaction Status Date / Time erythromycin base Allergy Severe Respiratory Verified 07/08/20 15:58 [Erythromycin Base] Penicillins Allergy Hives Verified 07/08/20 15:58 Sulfa (Sulfonamide Allergy Unknown Verified 07/08/20 15:58 Antibiotics) Tetracyclines Allergy Rash Verified 03/02/21 15:58 - Social History Does the pt smoke?: Yes Smoking Status: Former smoker Does the pt drink ETOH?: Yes Does the pt have substance abuse?: No - Immunizations Immunizations are current?: Yes - POLST Patient has POLST: No PD ED PE NORMAL - Vitals Vital signs reviewed: Yes - General General: Alert and oriented X 3, No acute distress - HEENT HEENT: PERRL, Moist mucous membranes - Neck Neck: Supple, no meningeal sign - Cardiac Cardiac: RRR, Strong equal pulses - Respiratory Respiratory: No respiratory distress, Clear bilaterally - Abdomen Abdomen: Soft, Non tender, Non distended - Derm Derm: Warm and dry - Neuro Neuro: Alert and oriented X 3 - Psych Psych: Normal mood, Normal affect - Free text exam Free text exam: Patient on nasal cannula oxygen, uses oxygen at home Results - Vitals Vitals: Vital Signs - 24 hr 04/06/23 18:27 Temperature 36.7 C Heart Rate 90 Respiratory 22 Rate Blood Pressure 110/61 O2 Saturation 98 Oxygen O2 Source Nasal cannula PD Medical Decision Making - ED course Complexity details: considered differential, d/w patient ED course: Patient is asymptomatic here. No hypotension. Ambulating with a normal gait. No lightheadedness or dizziness. No indication for further workup. No fevers. No chest pain. Patient counseled regarding signs and symptoms for which I believe and urgent re-evaluation would be necessary. Patient with good understanding of and agreement to plan and is comfortable going home at this time This document was made in part using voice recognition software. While efforts are made to proofread this document, sound alike and grammatical errors may occur. Departure - Departure Disposition: 01 Home, Self Care Clinical Impression: Hypotension Qualifiers: Hypotension type: unspecified hypotension type Qualified Code(s): I95.9 - Hypo tension, unspecified Condition: Good Instructions: ED Hypotension All Causes Follow-Up: your,doctor as needed [Other] Comments: Continue your current medications at home. Your blood pressure is normal here and was normal with EMS today as well. Forms: PCP List
[2023-04-07 00:48] VITALS: BP 154/78; O2SAT 92
== END 2023-04-07 00:38 | disposition home or self-care (01) ==
LOC: EDUNIT# → ED 17:55
DX: I95.9 Hypotension, unspecified (principal); J44.9 Chronic obstructive pulmonary disease, unspecified; Z79.899 Other long term (current) drug therapy; Z79.51 Long term (current) use of inhaled steroids; Z87.891 Personal history of nicotine dependence
CPT/HCPCS: 99283

== ENCOUNTER 2023-04-09 15:53 | Outpatient (CLI) | payer MEDICARE, MEDICAID | END 2023-04-09 15:54 | disposition EMS.NT | LOC: EMS 15:53 | DX: R09.89 Other specified symptoms and signs involving the circulatory and respiratory systems (principal); Z99.81 Dependence on supplemental oxygen ==

== ENCOUNTER 2023-04-09 21:45 | Outpatient (CLI) | payer MEDICARE, MEDICAID | END 2023-04-09 21:46 | disposition EMS.NT | LOC: EMS 21:45 | DX: Z03.89 Encounter for observation for other suspected diseases and conditions ruled out (principal) ==

== ENCOUNTER 2023-08-29 23:41 | Outpatient (CLI) | payer MEDICARE, MEDICAID | END 2023-08-29 23:59 | disposition critical access hospital (66) | LOC: EMS 23:41 | DX: R56.9 Unspecified convulsions (principal) | CPT/HCPCS: A0425; A0429 ==

== ENCOUNTER 2023-08-30 00:04 | Emergency (ER) | payer MEDICARE, MEDICAID ==
[2023-08-30 00:25] VITALS: O2SAT 96
--- NOTE | 2023-08-30 01:10 | XRAY Report ---
PROCEDURE: Chest 1V INDICATIONS: seizure vs syncope TECHNIQUE: One view of the chest was acquired. COMPARISON: 07/05/2021. FINDINGS: Surgical changes and devices: None. Lungs and pleura: No pleural effusions or pneumothorax. Streaky bibasilar opacities likely represent ing atelectasis. Mediastinum: Mediastinal contours appear normal. Heart size is mildly enlarged. Bones and chest wall: No suspicious bony lesions. Overlying soft tissues appear unremarkable. IMPRESSION: Cardiomegaly. No acute cardiopulmonary abnormalities. Mild streaky bibasilar opacities favored to rep resent atelectasis. No dense consolidation. Reviewed by: Porter Peña MD on 08/30/2023 1:08 AM PDT Approved by: Porter Peña MD on 08/30/2023 1:08 AM PDT Station ID: [id number]
--- NOTE | 2023-08-30 01:11 | CT Report ---
PROCEDURE: Head WO INDICATIONS: head injury/seizure TECHNIQUE: Noncontrast 4.5 mm thick angled axial sections acquired from the foramen magnum to the vertex. For r adiation dose reduction, the following was used: automated exposure control, adjustment of mA and/or kV according to patient size. COMPARISON: MRI brain dated 06/02/2019 FINDINGS: Image quality: Diagnostic. CSF spaces: Basal cisterns are patent. No extra-axial fluid collections. Ventricles are normal in size and shape. Brain: No midline shift. No intracranial masses or hemorrhage. No mass effect. Mack-white matter i nterface is normal. There cerebral volume loss for age with resultant ventricular and sulcal prominen ce. There are periventricular and deep white matter chronic small vessel ischemic changes. Atheroscle rotic calcifications are noted in the intracranial segments of the bilateral internal carotid arterie s. Skull and face: Calvarium and visualized facial bones are intact, without suspicious lesions. Sinuses: Visualized sinuses and mastoids are clear. IMPRESSION: No acute intracranial pathology. Reviewed by: Porter Peña MD on 08/30/2023 1:10 AM PDT Approved by: Porter Peña MD on 08/30/2023 1:10 AM PDT Station ID: [id number]
--- NOTE | 2023-08-30 01:16 | CT Report ---
PROCEDURE: Cervical Spine WO INDICATIONS: fall/pain TECHNIQUE: Noncontrast 3 mm thick sections acquired from the skull base to the T4 level. Sagittal and coronal r eformats were then constructed. For radiation dose reduction, the following was used: automated exp osure control, adjustment of mA and/or kV according to patient size. COMPARISON: Cervical spine radiographs dated 01/11/2020 FINDINGS: Image quality: Diagnostic. Bones: No acute fractures or dislocations. No acute compression fractures of the vertebral bodies. Craniocervical junction is intact. C1-C2 relationship is preserved. Visualized superior ribs are inta ct. Moderate multilevel cervical spondylosis. Findings are most severe at C5-6 and C6-7. There is associa suyapa moderate spinal canal stenosis at C5-6 and severe canal stenosis at C6-7. Soft tissues: Prevertebral soft tissues are normal in thickness. No paravertebral hematomas. No ap ical pneumothoraces. IMPRESSION: CT cervical spine without acute fracture or traumatic malalignment. Moderate multilevel cervical spondylosis most pronounced at C5-6 and C6-7 where there is associated m oderate spinal canal stenosis at C5-6 and severe canal stenosis at C6-7. Reviewed by: Porter Peña MD on 08/30/2023 1:15 AM PDT Approved by: Porter Peña MD on 08/30/2023 1:15 AM PDT Station ID: [id number]
--- NOTE | 2023-08-30 01:25 | CT Report ---
PROCEDURE: Lumbar Spine WO INDICATIONS: fall/pain TECHNIQUE: Noncontrast 3 mm thick sections acquired from the T12 level to the sacrum. Sagittal and coronal refo rmats were constructed. For radiation dose reduction, the following was used: automated exposure co ntrol, adjustment of mA and/or kV according to patient size. COMPARISON: CT abdomen and pelvis dated 11/27/2022 FINDINGS: Image quality: Diagnostic. Bones: There is normal bony alignment. No acute vertebral body compression fractures. No suspiciou s lytic or blastic bony lesions. No pars defects. Moderate-severe multilevel lumbar spondylosis. T12-L1: Degenerative endplate changes. Disc height loss. Symmetric disc bulge. Bilateral facet arthr opathy. No significant spinal canal stenosis. Mild bilateral neuroforaminal stenosis. L1-L2: Moderate degenerative endplate changes. Disc space loss. Degenerative endplate osteophytes. Symmetric disc bulge. Bilateral facet arthropathy. Moderate left and mild right neuroforaminal steno sis. Mild spinal canal stenosis. L2-L3: Disc space loss, degenerative endplate change. Bilateral facet arthropathy. Moderate symmet rell disc bulge. Moderate bilateral neuroforaminal stenosis. Mild-moderate spinal canal stenosis. L3-L4: Degenerative endplate changes. Disc space loss. Prominent endplate osteophytes. Bilateral fa cet arthropathy. Moderate left and moderate-severe right bilateral neuroforaminal stenosis. Moderate- severe spinal canal stenosis. L4-L5: Degenerative endplate changes and endplate osteophytes. Disc space loss. Prominent symmetric disc bulge. Bilateral facet arthropathy. Moderate-severe bilateral neuroforaminal stenosis. Moderate -severe spinal canal stenosis. L5-S1: Mild disc space loss. Mild degenerative endplate changes. Symmetric disc bulge. Facet arthro trung. Mild bilateral neuroforaminal stenosis. Minimal spinal canal stenosis. Soft tissues: No retroperitoneal masses or hematomas. Visualized aorta is normal in caliber. IMPRESSION: Lumbar spine without acute fracture or traumatic malalignment. Moderate-severe multilevel lumbar spondylosis as detailed above. Findings are most severe at L3-4 and L4-5. Reviewed by: Porter Peña MD on 08/30/2023 1:24 AM PDT Approved by: Proter Peña MD on 08/30/2023 1:24 AM PDT Station ID: [id number]
[2023-08-30] MEDS: LIDOCAINE PATCH 5% TOP STA (01:44)
[2023-08-30] MEDS: ACETAMINOPHEN 325 MG TABLET PO STA (01:44)
[2023-08-30] MEDS: SODIUM CHLORIDE 0.9% 1,000 ML IV STA (01:45)
[2023-08-30 01:47] LABS: BASOPHILS % (AUTO) 0.4 %; EOSINOPHILS # (AUTO) 0.4 10^3/uL (0.0-0.7); EOSINOPHILS % (AUTO) 5.2 %; HCT - HEMATOCRIT 42.6 % (37.0-47.0); LYMPHOCYTES % (AUTO) 14.6 %; MEAN CORPUSCULAR HEMOGLOBIN 25.7 pg (27.0-31.0); MEAN CORPUSCULAR HGB CONC 30.5 g/dL (32.0-36.0); MEAN CORPUSCULAR VOLUME 84.4 fL (81.0-99.0); MEAN PLATELET VOLUME 9.6 fL (7.9-10.8); MONOCYTES # (AUTO) 0.5 10^3/uL (0.0-1.0); MONOCYTES % (AUTO) 7.7 %; NEUTROPHILS % (AUTO) 71.2 %; PLT - PLATELET COUNT 283 10^3/uL (130-450); RED BLOOD COUNT 5.05 10^6/uL (4.20-5.40); RED CELL DISTRIBUTION WIDTH 15.6 % (12.0-15.0); WHITE BLOOD COUNT 7.1 x10^3/uL (4.8-10.8)
[2023-08-30 02:00] LABS: BILIRUBIN,URINE NEGATIVE (NEGATIVE); GLUCOSE, URINE (UA) NEGATIVE (NEGATIVE); KETONES,URINE (UA) NEGATIVE (NEGATIVE); LEUKOCYTE ESTERASE, URINE NEGATIVE (NEGATIVE); NITRITE,URINE NEGATIVE (NEGATIVE); OCCULT BLOOD,URINE NEGATIVE (NEGATIVE); PROTEIN,URINE NEGATIVE (NEGATIVE); UROBILINOGEN,URINE 0.2 (NORMAL) E.U./dL (NORMAL)
[2023-08-30 02:00] LABS: ALBUMIN 3.6 g/dL (3.2-5.5); BILIRUBIN,TOTAL 0.5 mg/dL (0.2-1.0); CALCIUM 10.1 mg/dL (8.5-10.3); CREATININE 0.8 mg/dL (0.6-1.3); POTASSIUM 3.2 mmol/L (3.5-4.5); TOTAL PROTEIN 7.2 g/dL (6.4-8.9)
[2023-08-30 02:08] LABS: CLARITY,URINE CLEAR (CLEAR)
[2023-08-30 02:10] LABS: TROPONIN I HIGH SENSITIVITY 20.9 ng/L (2.3-14.8)
[2023-08-30] MEDS: oxyCODONE 5 MG TABLET PO STA (02:12)
[2023-08-30] MEDS: POTASSIUM BICARB 25 MEQ TABLET PO ONE (02:12)
--- NOTE | 2023-08-30 02:19 | ED Physician Documentation ---
History of Present Illness - Stated complaint Stated Complaint: SZ, GLF, BACK PAIN - Chief complaint Chief Complaint: Neuro - History obtained from History obtained from: Family, EMS - Additonal information Additional information: Patient is a 73-year-old female presenting for evaluation of a seizure-like episode. Initial report from EMS was quite limited and really only stated that patient had a seizure and a fall. Further history was not able to be obtained until a friend of the patient's arrived to the emergency department who describes himself as her caregiver. He states that patient was in the midst of making [place] chops and then walked into her bedroom and was playing solDelivered on her phone when she went unresponsive and started having shaking movements that look like a seizure. He states this lasted for several minutes and then she was confused afterwards. He believes she was incontinent. She does have a history of seizures but it has been approximately 40 years and she does not currently take any antiepileptics. Per caregiver he states that she does have a history of alcohol abuse but stopped drinking 1 month ago.No drug use. Does not take blood thinners. Patient reports she stopped taking all of her medications 1 month ago including antihypertensives as she was not sure any of her meds were helping her.Caregiver also states her has been significant stress in the house recently involving the patient's son. He reports there was an event today that seem to be particularly stressful. Patient has recently had a cough for the past 2 weeks. Otherwise denies illness. Denies chest pain, shortness of air, Abdominal pain, dysuria. Review of Systems Constitutional: denies: Fever Cardiac: denies: Chest pain / pressure Respiratory: denies: Dyspnea GI: denies: Abdominal Pain : denies: Dysuria PD PAST MEDICAL HISTORY - Past Medical History Past Medical History: Yes Cardiovascular: Hypertension Respiratory: Asthma, COPD Neuro: Seizure disorder Endocrine/Autoimmune: None GI: None SPECIAL PROCEDURES NURSE: None : None HEENT: None Psych: None Musculoskeletal: None Derm: None - Past Surgical History Past Surgical History: Yes General:  /SPECIAL PROCEDURES NURSE: section, Tubal ligation, Hysterectomy - Present Medications Home Medications: Ambulatory Orders Medication Instructions Recorded Confirmed Atenolol 50 mg PO 01/15/13 05/17/14 Albuterol [Ventolin Hfa] 2 puffs INH Q4H PRN #1 inhaler 01/09/15 Metoprolol Tartrate 100 mg PO DAILY 03/31/18 09/10/19 Fluticasone/Vilanterol [Breo 1 puffs IN DAILY 09/10/19 09/10/19 Ellipta 200-25 Mcg INH] lisinopriL [Lisinopril] 20 mg ORAL DAILY 09/10/19 09/10/19 Ondansetron Odt [Zofran] 4 mg TL Q6H PRN #10 tablet 07/08/20 Pantoprazole [Protonix] 40 mg PO DAILY #30 tablet 07/08/20 Furosemide [Lasix] 20 02/16/21 Ciprofloxacin HCl [Cipro] 500 mg PO BID #14 tablet 11/27/22 HYDROcod/ACETAM 5/325 [[place] 5/325] 1 tablet PO Q6H PRN #10 tablet 08/30/23 Lidocaine Patch 5% [Lidoderm Patch] 1 patch TOP DAILY PRN #10 patch 08/30/23 - Allergies Allergies/Adverse Reactions: Allergies Allergy/AdvReac Type Severity Reaction Status Date / Time erythromycin base Allergy Severe Respiratory Verified 08/30/23 00:12 [Erythromycin Base] Penicillins Allergy Hives Verified 08/30/23 00:12 Sulfa (Sulfonamide Allergy Unknown Verified 08/30/23 00:12 Antibiotics) Tetracyclines Allergy Rash Verified 08/30/23 00:12 - Social History Does the pt smoke?: Yes Smoking Status: Current every day smoker Does the pt drink ETOH?: Yes Does the pt have substance abuse?: No - Immunizations Immunizations are current?: Yes - POLST Patient has POLST: No PD ED PE NORMAL - General General: Alert and oriented X 3, No acute distress, Well developed/nourished - HEENT HEENT: Atraumatic, PERRL, EOMI, Moist mucous membranes, Pharynx benign - Neck Neck: Supple, no meningeal sign, No bony TTP - Cardiac Cardiac: RRR, Strong equal pulses - Respiratory Respiratory: No respiratory distress, Clear bilaterally - Abdomen Abdomen: Normal bowel sounds, Soft, Non tender, Non distended - Back Back: Other (Mild low lumbar tenderness to palpation) - Derm Derm: Warm and dry - Extremities Extremities: No deformity - Neuro Neuro: Alert and oriented X 3, quill reamer 2-12 intact, No motor deficit, No sensory deficit, Normal speech Eye Opening: Spontaneous Motor: Obeys Commands Verbal: Oriented GCS Score: 15 Results - Vitals Vitals: Vital Signs - 24 hr 08/30/23 08/30/23 08/30/23 00:09 00:14 02:12 Temperature 36.6 C Heart Rate 100 105 H 88 Respiratory 18 18 18 Rate Blood Pressure 177/108 H 158/98 H O2 Saturation 95 96 96 08/30/23 04:00 Temperature Heart Rate 87 Respiratory 18 Rate Blood Pressure 155/96 H O2 Saturation 96 Oxygen O2 Source Room air - EKG (time done) 0100 EKG releavant findings:: EKG personally interpreted by author of this note. Relevant findings are: Rate 97, normal sinus rhythm, no STEMI, QTc 466 - Labs Labs: Laboratory Tests 08/30/23 08/30/23 08/30/23 01:34 01:34 01:50 WBC 7.1 RBC 5.05 Hgb 13.0 Hct 42.6 MCV 84.4 MCH 25.7 L MCHC 30.5 L RDW 15.6 H Plt Count 283 MPV 9.6 Neut # (Auto) 5.0 Lymph # (Auto) 1.0 L [place] # (Auto) 0.5 Eos # (Auto) 0.4 Baso # (Auto) 0.0 Absolute Nucleated RBC 0.00 Nucleated RBC % 0.0 Sodium 133 L Potassium 3.2 L Chloride 95 L Carbon Dioxide 28 Anion Gap 10.0 BUN 21 H Creatinine 0.8 Estimated GFR (MDRD) 71 L Glucose 117 H Calcium 10.1 Total Bilirubin 0.5 AST 12 ALT 7 L Alkaline Phosphatase 79 Troponin I High Sens 20.9 H* Total Protein 7.2 Albumin 3.6 Globulin 3.6 Albumin/Globulin Ratio 1.0 Lipase 44 Urine Color YELLOW Urine Clarity CLEAR Urine pH 7.0 Ur Specific [place] 1.010 Urine Protein NEGATIVE Urine Glucose (UA) NEGATIVE Urine Ketones NEGATIVE Urine Occult Blood NEGATIVE Urine Nitrite NEGATIVE Urine Bilirubin NEGATIVE Urine Urobilinogen 0.2 (NORMAL) Ur Leukocyte Esterase NEGATIVE Ur Microscopic Review NOT INDICATED Urine Culture Comments NOT INDICATED 08/30/23 02:45 WBC RBC Hgb Hct MCV MCH MCHC RDW Plt Count MPV Neut # (Auto) Lymph # (Auto) [place] # (Auto) Eos # (Auto) Baso # (Auto) Absolute Nucleated RBC Nucleated RBC % Sodium Potassium Chloride Carbon Dioxide Anion Gap BUN Creatinine Estimated GFR (MDRD) Glucose Calcium Total Bilirubin AST ALT Alkaline Phosphatase Troponin I High Sens 21.5 H* Total Protein Albumin Globulin Albumin/Globulin Ratio Lipase Urine Color Urine Clarity Urine pH Ur Specific [place] Urine Protein Urine Glucose (UA) Urine Ketones Urine Occult Blood Urine Nitrite Urine Bilirubin Urine Urobilinogen Ur Leukocyte Esterase Ur Microscopic Review Urine Culture Comments PD Medical Decision Making - ED course Complexity details: reviewed results, re-evaluated patient, d/w patient, d/w family ED course: Patient is a 73-year-old female presenting for evaluation after a seizure-like activity. History from EMS was quite limited. Normal neuroexam. Patient's blood pressure initially is elevated but she has not been taking her medications in a month. EKG reviewed and appears to be normal sinus rhythm. CBC, chemistries, troponin and urinalysis were obtained and reviewed. CT head, cervical spine, chest x-ray and CT lumbar spine were obtained given trauma and pain. No acute findings on imaging. Labs are significant for mild hypokalemia of 3.2 and slightly elevated troponin at 20. Troponin obtained initially as history was quite unclear whether this was syncope or seizure or event surrounding episode. However she denies any chest pain or other symptoms to suggest ACS. Repeat troponin does not show significant rise at 21. Therefore I feel ACS is very unlikely. Patient does report a history of seizures but it has been about 40 years since she has had 1. However she states that when she was younger she would have an aura prior to them and does not recall having 1 today. At this time I do not see the need for admission and recommend close outpatient follow-up with her primary care doctor. Patient is ambulatory at discharge. Counseled on usual seizure precautions as well as concerning symptoms to return for. Departure - Departure Disposition: 01 Home, Self Care Clinical Impression: Seizure-like activity, Non compliance w medication regimen, Hypokalemia, Low back pain Condition: Stable Instructions: ED Sprain Strain Lumbar, ED Seizure New Onset Unk Cause Prescriptions: Lidocaine Patch 5% [Lidoderm Patch] 1 patch TOP DAILY PRN #10 patch PRN Reason: pain HYDROcod/ACETAM 5/325 [[place] 5/325] 1 tablet PO Q6H PRN #10 tablet PRN Reason: Pain Comments: Patient reports that we have received it is concerning that he may have had a seizure tonight. I would recommend close follow-up with your primary care doctor. As it has been so long since you have had a seizure in the past they may want to refer you to a neurologist For further testing.In the meanwhile I would advise you not to drive Or operate any heavy machinery. I would recommend you resume your home medications and again reach out to your primary care doctor in the morning for a close follow-up appointment. Return to the emergency department with any worsening symptoms. I have sent a small amount of pain medication to the [facility] in [place]. Please use this only if needed for your back pain. My narcotic instructions Forms: PCP List Discharge Date/Time: 08/30/23 04:02
[2023-08-30 04:06] VITALS: BP 155/96
== END 2023-08-30 04:02 | disposition home or self-care (01) ==
LOC: EDUNIT# → SUPCPDRO 00:04 → ED 00:04
DX: R56.9 Unspecified convulsions (principal); E87.6 Hypokalemia; M54.50 Low back pain, unspecified; I10 Essential (primary) hypertension; W19.XXXA Unspecified fall, initial encounter; F17.200 Nicotine dependence, unspecified, uncomplicated; Z91.128 Patient's intentional underdosing of medication regimen for other reason
CPT/HCPCS: 36415; 70450; 71045; 72125; 72131; 80053; 81003; 83690; 84484; 85025; 93005; 96360; 96361; 99284; A9270; 81001; 87086

== ENCOUNTER 2023-09-11 19:53 | Emergency (ER) | payer MEDICARE, MEDICAID ==
[2023-09-11 20:05] VITALS: BP 160/90; O2SAT 96
--- NOTE | 2023-09-11 20:06 | ED Physician Documentation ---
PD HPI LOWER EXT INJURY - Stated complaint Stated Complaint: R LEG LAC - Chief complaint Chief Complaint: Laceration - History obtained from History obtained from: Patient - Additional information Additional information: She was helping someone with some oxygen tanks and kind of got knocked over and cut herself on a sharp edge of the tank to the right leg just prior to arrival. PD PAST MEDICAL HISTORY - Past Medical History Past Medical History: Yes Cardiovascular: Hypertension Respiratory: Asthma, COPD Neuro: Seizure disorder Endocrine/Autoimmune: None GI: None FUR LINER: None : None HEENT: None Psych: None Musculoskeletal: None Derm: None - Past Surgical History Past Surgical History: Yes General:  /FUR LINER: section, Tubal ligation, Hysterectomy - Present Medications Home Medications: Ambulatory Orders Medication Instructions Recorded Confirmed Atenolol 50 mg PO 01/15/13 05/17/14 Albuterol [Ventolin Hfa] 2 puffs INH Q4H PRN #1 inhaler 05/17/14 Metoprolol Tartrate 100 mg PO DAILY 03/31/18 09/10/19 Fluticasone/Vilanterol [Breo 1 puffs IN DAILY 09/10/19 09/10/19 Ellipta 200-25 Mcg INH] lisinopriL [Lisinopril] 20 mg ORAL DAILY 09/10/19 09/10/19 Ondansetron Odt [Zofran] 4 mg TL Q6H PRN #10 tablet 07/08/20 Pantoprazole [Protonix] 40 mg PO DAILY #30 tablet 07/08/20 Furosemide [Lasix] 20 02/16/21 Ciprofloxacin HCl [Cipro] 500 mg PO BID #14 tablet 11/27/22 HYDROcod/ACETAM 5/325 [[place] 5/325] 1 tablet PO Q6H PRN #10 tablet 08/30/23 Lidocaine Patch 5% [Lidoderm Patch] 1 patch TOP DAILY PRN #10 patch 08/30/23 - Allergies Allergies/Adverse Reactions: Allergies Allergy/AdvReac Type Severity Reaction Status Date / Time erythromycin base Allergy Severe Respiratory Verified 09/11/23 19:57 [Erythromycin Base] Penicillins Allergy Hives Verified 09/11/23 19:57 Sulfa (Sulfonamide Allergy Unknown Verified 09/11/23 19:57 Antibiotics) Tetracyclines Allergy Rash Verified 09/11/23 19:57 - Social History Does the pt smoke?: Yes Smoking Status: Current every day smoker Does the pt drink ETOH?: Yes Does the pt have substance abuse?: No - Immunizations Immunizations are current?: No Immunizations: TDAP >10years/unknown - POLST Patient has POLST: No PD ED PE NORMAL - Vitals Vital signs reviewed: Yes - General General: Alert and oriented X 3, No acute distress - Extremities Extremities: Other (Very shallow skin tear on the lateral distal right calf without bony tenderness over the tibia. Soft compartments and passive range of motion is painless.) - Neuro Neuro: Alert and oriented X 3 Results - Vitals Vitals: Vital Signs - 24 hr 09/11/23 19:57 Temperature 36.8 C Heart Rate 94 Respiratory 18 Rate Blood Pressure 160/90 H O2 Saturation 96 Oxygen O2 Source Room air Procedures - Laceration (location) Lateral R calf Length in cm: 4 Wound type: Superficial Wound preparation: Irrigated copiously NS Skin layer closure: Dermabond, Steri strips Other: Patient tolerated well, No complications, Neurovascular intact, Tetanus UTD Departure - Departure Disposition: 01 Home, Self Care Clinical Impression: Skin tear of right lower leg without complication Qualifiers: Encounter type: initial encounter Qualified Code(s): S81.811A - Laceration without foreign body, right lower leg, initial encounter Condition: Good Record reviewed to determine appropriate education?: Yes Instructions: ED Laceration Ext Sutr Stap Tape Comments: For your records, you are up-to-date on your tetanus vaccine. You had a Tdap shot in October 2018. Follow-up with your doctor for wound check in a few days. Given your thin skin it may not heal well in which case they may need to send you to wound care. In the interim soap and water and gentle blotting it dry is all he really need to do. Tylenol as needed per package instructions for pain. Forms: PCP List
== END 2023-09-11 20:36 | disposition home or self-care (01) ==
LOC: ED 19:53
DX: S81.811A Laceration without foreign body, right lower leg, initial encounter (principal); W26.8XXA Contact with other sharp object(s), not elsewhere classified, initial encounter; I10 Essential (primary) hypertension; J44.9 Chronic obstructive pulmonary disease, unspecified; G40.909 Epilepsy, unspecified, not intractable, without status epilepticus; Z79.899 Other long term (current) drug therapy; F17.200 Nicotine dependence, unspecified, uncomplicated
CPT/HCPCS: 12002; 99281

== ENCOUNTER 2023-11-21 11:41 | Emergency (ER) | payer MEDICARE, MEDICAID ==
[2023-11-21 14:06] LABS: BASOPHILS % (AUTO) 0.6 %; EOSINOPHILS # (AUTO) 0.6 10^3/uL (0.0-0.7); EOSINOPHILS % (AUTO) 12.4 %; HCT - HEMATOCRIT 35.6 % (37.0-47.0); HGB - HEMOGLOBIN 11.5 g/dL (12.0-16.0); LYMPHOCYTES # (AUTO) 1.2 10^3/uL (1.5-3.5); LYMPHOCYTES % (AUTO) 25.9 %; MEAN CORPUSCULAR HGB CONC 32.3 g/dL (32.0-36.0); MEAN CORPUSCULAR VOLUME 89.9 fL (81.0-99.0); MEAN PLATELET VOLUME 9.4 fL (7.9-10.8); MONOCYTES # (AUTO) 0.4 10^3/uL (0.0-1.0); MONOCYTES % (AUTO) 9.4 %; NEUTROPHILS # (AUTO) 2.4 10^3/uL (1.5-6.6); NEUTROPHILS % (AUTO) 51.5 %; PLT - PLATELET COUNT 229 10^3/uL (130-450); RED BLOOD COUNT 3.96 10^6/uL (4.20-5.40); RED CELL DISTRIBUTION WIDTH 13.7 % (12.0-15.0); WHITE BLOOD COUNT 4.7 x10^3/uL (4.8-10.8)
[2023-11-21 14:24] LABS: ALBUMIN 3.9 g/dL (3.2-5.5); ALBUMIN/GLOBULIN RATIO 1.1 (1.0-2.2); BILIRUBIN,TOTAL 0.4 mg/dL (0.2-1.0); CALCIUM 9.8 mg/dL (8.5-10.3); CREATININE 0.9 mg/dL (0.6-1.3); POTASSIUM 4.2 mmol/L (3.5-4.5); TOTAL PROTEIN 7.5 g/dL (6.4-8.9)
--- NOTE | 2023-11-21 16:46 | Ultrasound Report ---
PROCEDURE: Duplex Ext Veins Bilateral INDICATIONS: Bilateral leg pain and swelling. Peroneal nonocclusive thrombus in 2019. TECHNIQUE: Real-time imaging, as well as color and pulse Doppler interrogation, were performed of the deep veins of both legs from the inguinal ligament to the popliteal fossa. Attempted visualization of the calf veins was performed. COMPARISON: 08/19/2019. FINDINGS: The deep veins are normally compressible, and free of intraluminal thrombus. Color and pu lse Doppler demonstrate normal phasic intravascular flow. There is normal augmentation response to d istal compression maneuver. Right peroneal veins are unremarkable. Left peroneal and posterior tibia l veins are not visualized. IMPRESSION: No deep venous thrombosis of the visualized lower extremities. Reviewed by: Henri Cary MD on 11/21/2023 3:44 PM PAU Approved by: Henri Cary MD on 11/21/2023 3:44 PM PAU Station ID: [id number]
--- NOTE | 2023-11-21 16:48 | ED Physician Documentation ---
PD HPI LOWER EXT INJURY - Stated complaint Stated Complaint: BILAT LEG SWELLING - Chief complaint Chief Complaint: Ext Problem - Additional information Additional information: 73-year-old female with history of hypertension presents emergency department for bilateral lower extremity swelling. Patient says that she has been having this bilateral lower extremity swelling now for about 2 weeks she denies any shortness of breath any chest pain or any other concerning emergent symptoms.Patient also says that she has a sore on her right lower extremity that has been taking a really long time to heal. Patient says that she got the steroid from a couple weeks ago and oxygen tank fell onto her right lower extremity. This wound has been taking significantly longer to heal than other wounds she says that she has been ambulating on her feet a lot lately and has not had a chance to have an elevated and says that she is very prone to getting very severe swelling in her lower extremities when she does not take the time to elevate that. She does have Lasix and took 1 Lasix pill yesterday which did help some. Her left lower extremity is more swollen than her right lower extremity. PD PAST MEDICAL HISTORY - Past Medical History Cardiovascular: Hypertension Respiratory: Asthma, COPD Neuro: Seizure disorder Endocrine/Autoimmune: None GI: None REGULATORY COMPLIANCE SPECIALIST: None : None HEENT: None Psych: None Musculoskeletal: None Derm: None - Past Surgical History Past Surgical History: Yes General:  /REGULATORY COMPLIANCE SPECIALIST: section, Tubal ligation, Hysterectomy - Present Medications Home Medications: Ambulatory Orders Medication Instructions Recorded Confirmed Albuterol [Ventolin Hfa] 2 puffs INH Q4H PRN #1 inhaler 05/17/14 11/21/23 Metoprolol Tartrate 100 mg PO DAILY 03/31/18 11/21/23 Fluticasone/Vilanterol [Breo 1 puffs IN DAILY 09/10/19 11/21/23 Ellipta 200-25 Mcg INH] Furosemide [Lasix] 1 tab PO PRN PRN 02/16/21 11/21/23 - Allergies Allergies/Adverse Reactions: Allergies Allergy/AdvReac Type Severity Reaction Status Date / Time erythromycin base Allergy Severe Respiratory Verified 11/21/23 11:50 [Erythromycin Base] Penicillins Allergy Hives Verified 11/21/23 11:50 Sulfa (Sulfonamide Allergy Unknown Verified 11/21/23 11:50 Antibiotics) Tetracyclines Allergy Rash Verified 11/21/23 11:50 - Social History Does the pt smoke?: Yes Smoking Status: Current every day smoker Does the pt drink ETOH?: Yes Does the pt have substance abuse?: No - Immunizations Immunizations are current?: No Immunizations: TDAP >10years/unknown - POLST Patient has POLST: No PD ED PE NORMAL - Vitals Vital signs reviewed: Yes - General General: Alert and oriented X 3, No acute distress, Well developed/nourished - HEENT HEENT: Atraumatic - Cardiac Cardiac: RRR - Respiratory Respiratory: No respiratory distress, Clear bilaterally - Derm Derm: Other (Chronic right lower extremity wound no oozing or weeping no erythema left lower extremity more swollen than right lower extremity.) - Extremities Extremities: Other (Left lower extremity 2+ pitting edema no swelling to right lower extremity.) Results - Vitals Vitals: Vital Signs - 24 hr 11/21/23 19:19 Heart Rate 72 Respiratory 18 Rate Blood Pressure 126/82 H O2 Saturation 98 Oxygen O2 Source Room air - Labs Labs: Laboratory Tests 11/21/23 11/21/23 11/21/23 14:01 14:01 14:01 WBC 4.7 L RBC 3.96 L Hgb 11.5 L Hct 35.6 L MCV 89.9 MCH 29.0 MCHC 32.3 RDW 13.7 Plt Count 229 MPV 9.4 Neut # (Auto) 2.4 Lymph # (Auto) 1.2 L Petroleum # (Auto) 0.4 Eos # (Auto) 0.6 Baso # (Auto) 0.0 Absolute Nucleated RBC 0.00 Nucleated RBC % 0.0 Sodium 131 L Potassium 4.2 Chloride 96 L Carbon Dioxide 31 Anion Gap 4.0 L BUN 25 H Creatinine 0.9 Estimated GFR (MDRD) 62 L Glucose 101 Calcium 9.8 Total Bilirubin 0.4 AST 20 ALT 16 Alkaline Phosphatase 82 B-Natriuretic Peptide 115 H Total Protein 7.5 Albumin 3.9 Globulin 3.6 Albumin/Globulin Ratio 1.1 - Rads (name of study) Bilateral venous duplex Relevant Findings:: Final report received, EMP independent interpretation of test, Other (No DVT visualized) PD Medical Decision Making - ED course ED course: 73-year-old female presents emergency department from bilateral lower extremity swelling and edema. Bilateral venous duplex were complete for further evaluation and no DVTs were visualized. Patient later does report that she does have a history of DVTs and she has not any anticoagulation Therapy. She does appear to have a chronic wound on her right lower extremity that is taking a long time to heal there is no erythema or purulent drainage concerning for infection. There is no erythema to bilateral lower extremity making less suspicion for possible cellulitis and bilateral cellulitis is quite rare. At this point time I do believe that patient is experiencing peripheral vascular disease which is why she is having the delayed ulcer to her right lower extremity. She is told to continue her as needed Lasix follow-up with her primary care provider wear RAY hose and keep her legs elevated above her heart for the next few days to see if this helps bring swelling down. Return precautions given patient is safe for discharge at this time all questions answered It was stressed that she follows up with her primary care provider soon as possible outpatient. Departure - Departure Disposition: 01 Home, Self Care Clinical Impression: Peripheral vascular disease, Venous ulcer of right leg Instructions: ED PVD Comments: Please start wearing compression stockings to both legs and keep your legs elevated above your heart frequently and as much as possible over the next couple days to help with swelling. We have placed a Mepilex border dressing on your wound please order some of these to your house to help with wound healing on that right leg. You will change this dressing every 2 to 3 days. Please help with your primary care provider about today's ER visit and see if you would benefit from following up with the wound care clinic for further evaluation and management of the wound on your right lower extremity.Please come back to the ER if you are having any shortness of breath, chest pain, nausea vomiting or fever s. Forms: PCP List Discharge Date/Time: 11/21/23 16:55
[2023-11-21 19:22] VITALS: BP 126/82; O2SAT 98
== END 2023-11-21 16:55 | disposition home or self-care (01) ==
LOC: ED 11:41
DX: I73.9 Peripheral vascular disease, unspecified (principal); L97.819 Non-pressure chronic ulcer of other part of right lower leg with unspecified severity; J44.9 Chronic obstructive pulmonary disease, unspecified; I10 Essential (primary) hypertension; F17.200 Nicotine dependence, unspecified, uncomplicated; Z79.899 Other long term (current) drug therapy
CPT/HCPCS: 36415; 80053; 83880; 85025; 93970; 99283; 99284

== ENCOUNTER 2023-12-07 16:13 | Outpatient (CLI) | payer MEDICARE, MEDICAID | END 2023-12-07 23:59 | disposition short-term general hospital (02) | LOC: EMS 16:13 | DX: S60.212A Contusion of left wrist, initial encounter (principal); S51.811A Laceration without foreign body of right forearm, initial encounter; Y04.8XXA Assault by other bodily force, initial encounter; Y92.009 Unspecified place in unspecified non-institutional (private) residence as the place of occurrence of the external cause | CPT/HCPCS: A0425; A0427 ==